=== PATIENT | female | born 1960 | race Caucasian/White ===

== ENCOUNTER 2017-04-14 05:55 | Emergency (ER) | payer MEDICARE, BC ==
[~2017-04-14] VITALS: Ht 165.1 cm; Wt 107.6 kg
[~2017-04-14 05:55] MED LIST: BIOT1TAB16 PO; CITA40TA14 PO; CRAN500C4 PO; CYAN1TAB46 PO; CYCL-375 PO; DIPH25CA84 PO; DULO30CA2 PO; ERGO400T3 PO; ESTR1.2532 PO; GABA-338 PO; HYDR-2164 PO; HYDR25TA85 PO; LISI10TA7 PO; LORA-204 PO; MAGN100T2 PO; MILN25TA PO; MULT1TAB69 PO; OXYC1TAB8 PO; PROM25TA PO; TURM500C7 PO
[2017-04-14 05:57] VITALS: TEMP 97.6; Ht 165.1 cm; Wt 107.6 kg
--- OUTSIDE RECORDS SUMMARY | 2017-04-14 05:59 | XMS REPORT | Continuity of Care Document ---
[facility] Address Unknown Phone Unavailable Care Team Providers Care Tool Maintenance Technician Name Role Phone Primary Care Physician Unavailable Source Comments Some departments are not documenting in the electronic medical record. If you do not see the information that you expected, contact Release of Information in the Health Information Management department at [phone] for further assistance in locating additional records.[facility] Active Allergies and Adverse Reactions Allergen Noted Date Severity Reactions Comments Clarithromycin 01/17/2007 Allergy recorded in SMS: Biaxin Codeine 01/17/2007 Allergy recorded in SMS: Codeine Morphine 01/17/2007 Allergy recorded in SMS: Morphine Current Medications Not on file Active Problems Not on file Social History Tobacco Use Types Packs/Day Years Used Date Never Assessed Plan of Care Health Maintenance Due Date Last Done Comments Hepatitis C Screening 1958 Physical (Comprehensive) 1965 Exam Pertussis Vaccine 1969 Tetanus Vaccine 1975 Cervical Cancer Screening 1979 Breast Cancer Screening 1998 Colorectal Cancer 2008 Screening Influenza Vaccine 07/29/2017 Results from Last 3 Months Not on file
--- OUTSIDE RECORDS SUMMARY | 2017-04-14 06:00 | XMS REPORT | Referral Summary ---
Author Author [facility] Organization [facility] Address Unknown Phone Unavailable Care Team Providers Care National Dedicated Truck Driver Name Role Phone Shanna John Primary Care Physician [phone] Encounter Date(s): 09/26/15 - 09/26/15 [facility] [place] [address] Discharge Diagnosis: Wheezing Discharge Diagnosis: GERD without esophagitis Discharge Diagnosis: Diabetes Discharge Diagnosis: Morbid obesity Discharge Diagnosis: History of gastric bypass Discharge Disposition: 01-Home or Self Care Attending Physician: Estelle Lobato APRN Admitting Physician: Estelle Lobato APRN Vital Signs Most recent to 1 oldest [Reference Range]: Temperature Tympanic 37.2 degC [36.6-38.1 degC] (09/26/15 9:47 AM) Peripheral Pulse 103 bpm Rate [60-100 bpm] *HI* (09/26/15 9:47 AM) Blood Pressure 128/76 mmHg [90-140/60-90 mmHg] (09/26/15 9:47 AM) SpO2 95 % (09/26/15 9:47 AM) Problem List Condition Effective Dates Status Health Status Informant Anxiety(Confirmed) Active Benign essential Active hypertension (disorder)(Confirmed ) HTN (hypertension), Active benign(Confirmed) Chronic Resolved fatigue(Confirmed) Chronic pain Active syndrome(Confirmed) Diabetes(Confirmed) Active Immune system Active disorder(Confirmed)1 Fibromyalgia(Confirm Active ed) Hypersomnia with Active sleep apnea(Confirmed) Hypoglycemia(Confirm Active ed) Chronic Active pruritus(Confirmed) Morbid Active patient obesity(Confirmed) Neuropathy(Confirmed Active ) MARLENI on Active CPAP(Confirmed) Pruritic disorders Active (disorder)(Confirmed ) 1see conversion document Allergies, Adverse Reactions, Alerts Substance Reaction Severity Status Biaxin Active codeine Nausea/Vomiting Active morphine Nausea/Vomiting Active oxyCODONE itch Active Medications Advair Diskus 250 mcg-50 mcg inhalation powder See Instructions, 2 samples given #5ZP!%@$ exp , 0 Refill(s) Start Date: 01/08/16 Status: Ordered ALPRAZolam 0.5 mg oral tablet 0.5 mg 1 tabs, Oral, BID, as needed for anxiety, Fax to [facility], # 60 tabs, 0 Refill(s) Start Date: 03/22/16 Status: Ordered Benadryl 25 mg, as needed for allergy symptoms, 0 Refill(s) Start Date: 06/16/15 Status: Ordered CeleXA 40 mg oral tablet 40 mg 1 tabs, Oral, Daily, # 90 tabs, 1 Refill(s), Pharmacy: [facility], 1 tabs Oral Daily Start Date: 02/19/16 Status: Ordered CPAP Machine (DME) DME Item Dr. Bonner - 10 cmH2O, See Instructions, # 1 Each, 0 Refill(s), Supply Start Date: 10/10/15 Status: Ordered cranberry 440 mg, Oral, Daily, 0 Refill(s) Start Date: 06/26/14 Status: Ordered cyclobenzaprine 10 mg oral tablet 10 mg 1 tabs, Oral, BID, # 180 tabs, 1 Refill(s), Pharmacy: [facility], 1 tabs Oral BID Start Date: 04/06/16 Status: Ordered Cymbalta 30 mg oral delayed release capsule 30 mg 1 caps, Oral, q8hr, do not crush or chew, # 90 caps, 0 Refill(s), other reason (Rx) Start Date: 12/10/15 Status: Ordered gabapentin 300 mg oral capsule 600 mg 2 caps, Oral, TID, # 180 caps, 6 Refill(s), other reason (Rx), 4 caps Oral TID,x30 days Start Date: 03/10/16 Stop Date: 10/06/16 Status: Ordered hydrochlorothiazide 25 mg oral tablet See Instructions, TAKE ONE TABLET BY MOUTH ONCE DAILY, # 90 tabs, 2 Refill(s), eRx: [facility], TAKE ONE TABLET BY MOUTH ONCE DAILY Start Date: 01/30/16 Status: Ordered hydrochlorothiazide 25 mg oral tablet See Instructions, TAKE ONE TABLET BY MOUTH ONCE DAILY, # 90 tabs, 0 Refill(s), Pharmacy: [place] [address], TAKE ONE TABLET BY MOUTH ONCE DAILY Start Date: 11/13/15 Status: Ordered hydrOXYzine hydrochloride 25 mg oral tablet See Instructions, TAKE ONE TABLET BY MOUTH EVERY 6 HOURS NEEDED. TAKES WITH NORCO., # 90 tabs, 3 Refill(s), Pharmacy: [place] [address], TAKE ONE TABLET BY MOUTH EVERY 6 HOURS NEEDED. TAKES WITH NORCO. Start Date: 11/25/15 Status: Ordered lisinopril 10 mg oral tablet 10 mg 1 tabs, Oral, Daily, # 90 tabs, 1 Refill(s), Pharmacy: [facility] [address], 1 tabs Oral Daily Start Date: 03/10/16 Status: Ordered magnesium citrate See Instructions, 1 cap BID, 0 Refill(s) Start Date: 06/16/15 Status: Ordered [place] 5 mg-325 mg oral tablet 1 tabs, Oral, TID, as needed for pain, MAY TAKE ONE EXTRA DAILY / MUST LAST 30 DAYS/, # 100 tabs, 0 Refill(s) Start Date: 03/22/16 Status: Ordered Premarin 1.25 mg oral tablet See Instructions, TAKE ONE TABLET BY MOUTH 3x WEEKLY, # 84 tabs, 0 Refill(s), TAKE ONE TABLET BY MOUTH 3x WEEKLY Start Date: 07/28/15 Status: Ordered PriLOSEC 40 mg oral delayed release capsule 40 mg 1 caps, Oral, Daily, # 90 caps, 0 Refill(s), Pharmacy: [facility] [address], 1 caps Oral Daily Start Date: 09/26/15 Status: Ordered ProAir RespiClick 90 mcg/inh inhalation powder 2 puffs, Inhalation, q4hr, Shortness of Breath/Wheezing, Pt. has coupon for free trial - given to pt while in office., # 1 Each, 1 Refill(s), Pharmacy: [facility] [id number] Start Date: 10/10/15 Status: Ordered promethazine 25 mg oral tablet See Instructions, TAKE ONE TABLET BY MOUTH EVERY 6 HOURS NEEDED FOR NAUSEA, # 90 tabs, 2 Refill(s), eRx: [facility] [id number], TAKE ONE TABLET BY MOUTH EVERY 6 HOURS NEEDED FOR NAUSEA Start Date: 12/29/15 Status: Ordered Savella 25 mg oral tablet 25 mg 1 tabs, Oral, BID, # 180 tabs, 3 Refill(s), 1 tabs Oral BID Start Date: 07/28/15 Status: Ordered TUMERIC TUMERIC, Daily, 0 Refill(s) Start Date: 06/16/15 Status: Ordered Vitamin D with Minerals oral tablet 2 tabs, Oral, Daily, # 30 tabs, 0 Refill(s) Start Date: 09/17/14 Status: Ordered Results No data available for this section Immunizations Vaccine Date Refusal Reason tetanus/diphth/pertuss (Tdap) adult/adol 09/19/15 influenza virus vaccine, inactivated 09/19/15 influenza virus vaccine, inactivated1 09/17/14 pneumococcal 23-polyvalent vaccine 09/19/15 pneumococcal 23-polyvalent vaccine 10/12/01 tetanus-diphth toxoids (Td) adult/adol 04/01/04 zoster vaccine live 10/01/13 1Result Comment: [09/24/2014] see scanned doc Procedures Procedure Date Related Diagnosis Body Site Adenoidectomy Appendectomy Cholecystectomy Dilation and curettage Gastric bypass Hysterectomy Laparoscopy NERVE RELEASE IN ABD1 Parotidectomy Sphincterotomy2 Tonsillectomy TUMOR REMOVED3 1see Conversion Documents 2see Conversion document 3See Conversion Document Social History Social History Type Response Smoking Status Former smoker; Type: Cigarettes; Tobacco use per day: 1 Pack ; Number of years: 32; Total pack years: 32; Stopped at age: 89 1Quit at age 48. Assessment and Plan Extracted from: Title: Office Visit Note-GERD Author: Estelle Lobato ADULT SCHOOL COUNSELOR Date: Assessment/Plan 1.GERD without esophagitis Discussed with patient considering her symptoms I think it's reasonable to treat her for acid refluxthough clearly her anatomy is different since having the bypass. May need to reestablish care with gastric bypass surgeonif continued acid symptoms despite PPI therapy. Ordered: Office Visit Level 4 Est 34017 2.Wheezing As patient's discusses her symptoms more question if it's related tolaryngeal irritation from reflux. Let's see if it improves with the PPI. May need to refer to ENT for further evaluation. Her now keep pulmonology appointment. Ordered: Office Visit Level 4 Est 14424 3.History of gastric bypass Ordered: Office Visit Level 4 Est 31309 Diabetes Last labs reviewed with patient. Encourage healthy eating. Morbid obesity Ordered: Office Visit Level 4 Est 70338 Orders: omeprazole, 40 mg 1 caps, Oral, Daily, # 90 caps, 0 Refill(s), Pharmacy: [facility], 1 caps Oral Daily
--- OUTSIDE RECORDS SUMMARY | 2017-04-14 06:00 | XMS REPORT | Referral Summary ---
Author Author [facility], [facility] Organization [facility] Address Unknown Phone Unavailable Care Team Providers Care Party Demonstrator Name Role Phone Shanna John Primary Care Physician [phone] Encounter Date(s): 05/05/16 - 05/05/16 [facility] [place] [address] Discharge Diagnosis: Abdominal pain, epigastric Discharge Diagnosis: Chronic pain syndrome Discharge Disposition: 01-Home or Self Care Attending Physician: Marie John DO Admitting Physician: Marie John DO Vital Signs Most recent to 1 oldest [Reference Range]: Peripheral Pulse 92 bpm Rate [60-100 bpm] (05/05/16 1:29 PM) Respiratory Rate 18 br/min [14-20 br/min] (05/05/16 1:29 PM) Blood Pressure 124/82 mmHg [90-140/60-90 mmHg] (05/05/16 1:29 PM) SpO2 96 % (05/05/16 1:29 PM) Problem List Condition Effective Dates Status Health [...] BID, as needed for anxiety, Fax to [facility], # 60 tabs, 0 Refill(s) Start Date: 04/19/16 Status: Ordered Benadryl 25 mg, as needed for allergy symptoms, 0 Refill(s) Start Date: 06/16/15 Status: Ordered CeleXA 40 mg oral tablet 40 mg 1 tabs, Oral, Daily, # 90 tabs, 1 Refill(s), Pharmacy: [facility], 1 tabs Oral Daily [...] BID, # 180 tabs, 1 Refill(s), Pharmacy: [facility], 1 tabs Oral BID [...] DAILY, # 90 tabs, 2 Refill(s), eRx: [facility], TAKE ONE TABLET BY MOUTH ONCE DAILY Start Date: 01/30/16 Status: Ordered hydrochlorothiazide 25 mg oral tablet See Instructions, TAKE ONE TABLET BY MOUTH ONCE DAILY, # 90 tabs, 0 Refill(s), Pharmacy: [facility], TAKE ONE TABLET BY MOUTH ONCE DAILY Start Date: 11/13/15 Status: Ordered hydrOXYzine hydrochloride 25 mg oral tablet See Instructions, TAKE ONE TABLET BY MOUTH EVERY 6 HOURS NEEDED. TAKES WITH NORCO., # 90 tabs, 3 Refill(s), Pharmacy: [place] [address], TAKE ONE TABLET BY MOUTH EVERY 6 HOURS NEEDED. TAKES WITH NORCO. Start Date: 11/25/15 Status: Ordered lisinopril 10 mg oral tablet 10 mg 1 tabs, Oral, Daily, # 90 tabs, 1 Refill(s), Pharmacy: [place] [address], 1 tabs Oral Daily Start Date: 03/10/16 Status: Ordered magnesium citrate See Instructions, 1 cap BID, 0 Refill(s) Start Date: 06/16/15 Status: Ordered [place] 5 mg-325 mg oral tablet 1 tabs, Oral, TID, as needed for pain, MAY TAKE ONE EXTRA DAILY / MUST LAST 30 DAYS/, # 100 tabs, 0 Refill(s) Start Date: 05/05/16 Status: Ordered Percocet 5/325 oral tablet 1-2 tabs, Oral, q6hr, 0 Refill(s) Start Date: 05/05/16 Status: Ordered Premarin 1.25 mg oral tablet See Instructions, TAKE ONE TABLET BY MOUTH 3x WEEKLY, # 84 tabs, 0 Refill(s), TAKE ONE TABLET BY MOUTH 3x WEEKLY Start Date: 07/28/15 Status: Ordered PriLOSEC 40 mg oral delayed release capsule 40 mg 1 caps, Oral, Daily, # 90 caps, 0 Refill(s), Pharmacy: [place] [address], 1 caps Oral Daily Start Date: 09/26/15 Status: Ordered ProAir RespiClick 90 mcg/inh inhalation powder 2 puffs, Inhalation, q4hr, Shortness of Breath/Wheezing, Pt. has coupon for free trial - given to pt while in office., # 1 Each, 1 Refill(s), Pharmacy: [facility] [place] [id number] Start Date: 10/10/15 Status: Ordered promethazine 25 mg oral tablet See Instructions, TAKE ONE TABLET BY MOUTH EVERY 6 HOURS NEEDED FOR NAUSEA, # 90 tabs, 2 Refill(s), eRx: [place] [address], TAKE ONE TABLET BY MOUTH EVERY 6 [...] and Plan Extracted from: Title: Office Visit Note Author: Marie John DO Date: 05/05/16 Assessment/Plan Abdominal pain, epigastric We will refer patient Mandeep at her request. Ordered: Internal Referral to Gastroenterology Office Visit Level 4 Est 13211 Chronic pain syndrome A thorough discussion was had today about the trajectory of her pain control. We discussed thatthere really isn't anything stronger than hydromorphone out there and that I am concerned if she starts taking this medication as such young age that we have no where to go from here. She agrees with this and wants to try her normal 100 of hydrocodone for this monthand see how she does. She will return to clinic in a month for reevaluation. Ordered: Office Visit Level 4 Est 82520 Orders: HYDROcodone-acetaminophen, 1 tabs, Oral, TID, as needed for pain, MAY TAKE ONE EXTRA DAILY / MUST LAST 30 DAYS/, # 100 tabs, 0 Refill(s)
--- OUTSIDE RECORDS SUMMARY | 2017-04-14 06:00 | XMS REPORT | Referral Summary ---
Author Author [facility] Organization [facility] Address Unknown Phone Unavailable Care Team Providers Care Head Host/Hostess Name Role Phone Shanna John Primary Care Physician [phone] Encounter VC Date(s): 12/01/16 - 12/01/16 [facility] [address] [place] [address] Discharge Disposition: 01-Home or Self Care Attending Physician: Ace Layton MD Admitting Physician: Ace Layton MD Vital Signs Most recent to 1 oldest [Reference Range]: Temperature Skin 36.0 degC [36-37 degC] (12/01/16 8:26 AM) Temperature Temporal 36.4 degC Artery [36.3-37.8 (12/01/16 10:50 AM) degC] Peripheral Pulse 81 bpm Rate [60-100 bpm] (12/01/16 2:15 PM) Heart Rate Monitored 72 bpm [60-100 bpm] (12/01/16 10:25 AM) Respiratory Rate 16 br/min [14-20 br/min] (12/01/16 2:15 PM) Blood Pressure 149/67 mmHg [90-140/60-90 mmHg] *HI* (12/01/16 2:15 PM) SpO2 94 % (12/01/16 2:15 PM) Problem List Condition Effective Dates Status Health Status Informant Anxiety(Confirmed) Active Benign essential Active hypertension (disorder)(Confirmed ) HTN (hypertension), Active benign(Confirmed) Chronic back pain Active greater than 3 months duration(Confirmed) Chronic Resolved fatigue(Confirmed) Chronic pain Active syndrome(Confirmed) [...] morphine Nausea/Vomiting Active oxyCODONE itch Active Medications CeleXA 40 mg oral tablet 40 mg 1 tabs, Oral, Daily, # 90 tabs, 1 Refill(s), Pharmacy: [facility], 1 tabs Oral Daily Start Date: 02/19/16 Status: Ordered cinnamon See Instructions, 1 tab BID, 0 Refill(s) Start Date: 05/25/16 Status: Ordered cranberry 440 mg, Oral, Daily, 0 Refill(s) Start Date: 06/26/14 Status: Ordered gabapentin 300 mg oral capsule 600 mg 2 caps, Oral, TID, # 180 caps, 0 Refill(s) Start Date: 11/25/16 Status: Ordered hydrochlorothiazide 25 mg oral tablet See Instructions, TAKE ONE TABLET BY MOUTH ONCE DAILY, # 90 tabs, 1 Refill(s), eRx: [facility], TAKE ONE TABLET BY MOUTH ONCE DAILY Start Date: 08/16/16 Status: Ordered hydrOXYzine hydrochloride 25 mg oral tablet See Instructions, TAKE ONE TABLET BY MOUTH EVERY 6 HOURS NEEDED TAKE WITH NORCO., # 90 tabs, 0 Refill(s) Start Date: 11/23/16 Status: Ordered multivitamin 1 tabs, Oral, Daily, 0 Refill(s) Start Date: 12/01/16 Status: Ordered [place] 5 mg-325 mg oral tablet 2 tabs, Oral, TID, as needed for pain, MUST LAST 30 DAYS, # 120 tabs, 0 Refill(s) Start Date: 07/26/16 Status: Ordered promethazine 25 mg oral tablet See Instructions, TAKE ONE TABLET BY MOUTH EVERY 6 HOURS NEEDED FOR NAUSEA, # 90 tabs, 1 Refill(s), Pharmacy: [facility], TAKE ONE TABLET BY MOUTH EVERY 6 HOURS NEEDED FOR NAUSEA Start Date: 10/19/16 Status: Ordered Super B Complex 2 tabs, Oral, Daily, 0 Refill(s) Start Date: 12/01/16 Status: Ordered tiZANidine 4 mg oral tablet 4 mg 1 tabs, Oral, q8hr, Once every 8 hrs., # 90 tabs, 0 Refill(s) Start Date: 10/19/16 Status: Ordered Vitamin D3 1,000 Intl_Units, Oral, Daily, 0 Refill(s) Start Date: 12/01/16 Status: Ordered Results Hematology Most recent to 1 oldest [Reference Range]: WBC [4.8-10.8 8.2 10*3/uL 10*3/uL] (12/01/16 8:09 AM) RBC [4.00-5.20] 4.34 (12/01/16 8:09 AM) Hgb [12.0-16.0 11.7 gm/dL gm/dL] *LOW* (12/01/16 8:09 AM) Hct [37.0-47.0 %] 37.2 % (12/01/16 8:09 AM) MCV [82.0-99.0 fL] 85.7 fL (12/01/16 8:09 AM) MCH [27.0-32.0 pg] 27.0 pg (12/01/16 8:09 AM) MCHC [32.0-36.0 31.5 gm/dL gm/dL] *LOW* (12/01/16 8:09 AM) RDW [11.5-14.5 %] 14.8 % *HI* (12/01/16 8:09 AM) Platelet [150-400 380 10*3/uL 10*3/uL] (12/01/16 8:09 AM) MPV [9.4-12.4 fL] 10.2 fL (12/01/16 8:09 AM) Immature 0.2 % Granulocytes (12/01/16 8:09 AM) [0.0-1.0 %] Neutrophils [51-75 50 % %] *LOW* (12/01/16 8:09 AM) Lymphocytes [20-46 37 % %] (12/01/16 8:09 AM) Monocytes [4-11 %] 7 % (12/01/16 8:09 AM) Eosinophils [0-4 %] 5 % *HI* (12/01/16 8:09 AM) Basophils [0-2 %] 0 % (12/01/16 8:09 AM) Neutro Absolute 4.15 [1.90-7.00] (12/01/16 8:09 AM) Lymph Absolute 3.07 [0.80-3.30] (12/01/16 8:09 AM) Nicholas Absolute 0.58 [0.30-1.00] (12/01/16 8:09 AM) Eos Absolute 0.39 [0.00-0.50] (12/01/16 8:09 AM) Baso Absolute 0.03 [0.00-0.20] (12/01/16 8:09 AM) Nucleated RBC 0.0 /100 WBC Automated [0 /100 (12/01/16 8:09 AM) WBC] Coagulation Most recent to 1 oldest [Reference Range]: INR [0.9-1.2] 1.0 (12/01/16 8:09 AM) PTT [25.0-35.0 39.2 seconds seconds] *HI* (12/01/16 8:09 AM) Chemistry Most recent to 1 oldest [Reference Range]: Blood Glucose, 111 mg/dL Capillary [70-100 *HI* mg/dL] (12/01/16 8:08 AM) Immunizations Given and Recorded Vaccine Date Status Refusal Reason tetanus/diphth/pertuss (Tdap) adult/adol 09/19/15 Given influenza virus vaccine, inactivated 10/19/16 Given influenza virus vaccine, inactivated 09/19/15 Given influenza virus vaccine, inactivated1 09/17/14 Recorded pneumococcal 23-polyvalent vaccine 09/19/15 Given pneumococcal 23-polyvalent vaccine 10/12/01 Recorded tetanus-diphth toxoids (Td) adult/adol 04/01/04 Given zoster vaccine live 10/01/13 Given 1Result Comment: [09/24/2014] see scanned doc Procedures Procedure Date Related Diagnosis Body Site Spinal puncture, lumbar, diagnostic.. 12/01/16 Spinal puncture, therapeutic, for drainage of 12/01/16 cerebrospinal fluid (by needle or catheter).. Adenoidectomy Appendectomy Cholecystectomy Dilation and curettage Gastric [...] 1Quit at age 48. Assessment and Plan No data available for this section
--- OUTSIDE RECORDS SUMMARY | 2017-04-14 06:00 | XMS REPORT | Referral Summary ---
Author Author [facility] Organization [facility] Address Unknown Phone Unavailable Care Team Providers Care Seo Executive Name Role Phone Shanna John Primary Care Physician [phone] Encounter VC Date(s): 06/22/16 - 06/22/[address] [facility] [address] [facility] [address] [place], [place] [address] Discharge Diagnosis: Paresthesias Discharge Disposition: 01-Home or Self Care Attending Physician: Ace Layton MD Admitting Physician: Ace Layton MD Vital Signs Most recent to 1 oldest [Reference Range]: Peripheral Pulse 80 bpm Rate [60-100 bpm] (06/22/16 9:27 AM) Blood Pressure 140/90 mmHg [90-140/60-90 mmHg] (06/22/16 9:27 AM) Problem List Condition Effective Dates Status [...] morphine Nausea/Vomiting Active oxyCODONE itch Active Medications ALPRAZolam 0.5 mg oral tablet 0.5 mg 1 tabs, Oral, BID, as needed for anxiety, Fax to [facility], # 60 tabs, 0 Refill(s) Start Date: 06/19/16 Status: Ordered Benadryl 25 mg, as needed for allergy symptoms, 0 Refill(s) Start Date: 06/16/15 Status: Ordered CeleXA 40 mg oral tablet 40 mg 1 tabs, Oral, Daily, # 90 tabs, 1 Refill(s), Pharmacy: [facility], 1 tabs Oral Daily Start Date: 02/19/16 Status: Ordered cinnamon See Instructions, 1 tab BID, 0 Refill(s) Start Date: 05/25/16 Status: Ordered CPAP Machine (DME) DME Item Dr. Bonner - 10 cmH2O, See Instructions, # 1 Each, 0 Refill(s), Supply Start Date: 10/10/15 Status: Ordered cranberry 440 mg, Oral, Daily, 0 Refill(s) Start Date: 06/26/14 Status: Ordered cyclobenzaprine 10 mg oral tablet 10 mg 1 tabs, Oral, BID, # 180 tabs, 1 Refill(s), Pharmacy: [facility], 1 tabs Oral BID Start Date: 04/06/16 [...] DAILY, # 90 tabs, 2 Refill(s), eRx: [facility], TAKE ONE TABLET BY MOUTH ONCE DAILY Start Date: 01/30/16 Status: Ordered hydrOXYzine hydrochloride 25 mg oral tablet See Instructions, TAKE ONE TABLET BY MOUTH EVERY 6 HOURS NEEDED TAKE WITH NORCO., # 90 tabs, eRx: [facility], TAKE ONE TABLET BY MOUTH EVERY 6 HOURS NEEDED TAKE WITH NORCO. Start Date: 06/19/16 Status: Ordered lisinopril 10 mg oral tablet See Instructions, TAKE ONE TABLET BY MOUTH ONCE DAILY, # 90 tabs, eRx: [facility], TAKE ONE TABLET BY MOUTH ONCE DAILY Start Date: 06/19/16 Status: Ordered magnesium citrate See Instructions, 1 cap BID, 0 Refill(s) Start Date: 06/16/15 Status: Ordered metoclopramide 10 mg oral tablet 10 mg 1 tabs, Oral, TIDAC, X 30 days, # 90 tabs, 0 Refill(s), Pharmacy: [facility], 1 tabs Oral TIDAC,x30 days Start Date: 06/05/16 Stop Date: 07/05/16 Status: Ordered [place] 5 mg-325 mg oral tablet 2 tabs, Oral, TID, as needed for pain, / MUST LAST 30 DAYS/, # 150 tabs, 0 Refill(s) Start Date: 05/26/16 Status: Ordered ProAir RespiClick 90 mcg/inh inhalation powder 2 puffs, Inhalation, q4hr, Shortness of Breath/Wheezing, Pt. has coupon for free trial - given to pt while in office., # 1 Each, 1 Refill(s), Pharmacy: [facility] Start Date: 10/10/15 Status: Ordered Savella 25 mg oral tablet 25 mg 1 tabs, Oral, BID, # 180 tabs, 3 Refill(s), 1 tabs Oral BID Start Date: 07/28/15 Status: Ordered Spiriva mcg, Inhalation, Daily, 0 Refill(s) Start Date: 05/26/16 Status: Ordered TUMERIC TUMERIC, Daily, 0 Refill(s) [...] Extracted from: Title: Office Visit Note Author: Ace Layton MD Date: 06/22/16 Assessment/Plan Paresthesias 56 yo F with diabetes her for evaluation of paresthesias and burning pains in feet/hands for about a year. Pt has been evaluated previously by Neurologist, had NCS/EMG and lab work. Will request records and EMG report. Examination was remarkable for ?effort dependent weakness ofR leg and reduced sensation in feet/hands. Reflexes were normal. Plan MRI lumbar spine w/tanya asses for lumbar radiculopathy Request Neurology records including EMG report. Neuropathy labs ordered Time spent with the patient was45 minutes. Greater than 50% of that time was spent counseling the patient, discussing treatment plan and options, answering questions, and follow up plan. Ordered: HIV Antigen/Antibody Immunoelectrophoresis, Serum Immunoglobulin Free Light Chains-[place] Methylmalonic Acid Quant-[place] Sjogren's Antibody Thiamin (Vit B1) Whole Blood-[place] TSH with Reflex Free T4 Vitamin B12 and Folate Vitamin E Level-[place] Addendum Received adn reviewed notes from prior Neurologist. by Ritika NCS/EMG from 03/2015 had reduced R sural amplitude with normal latency, and absent R Omi, peroneal sensory response. 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 Will repeat NCS/EMG Ace Edmond MD on June 22, 2016 10:49:23 CDT
--- OUTSIDE RECORDS SUMMARY | 2017-04-14 06:00 | XMS REPORT | Referral Summary ---
Author Author [facility] Organization [facility] Address Unknown Phone Unavailable Care Team Providers Care Emergency Room Physician Name Role Phone Shanna John Primary Care Physician [phone] Encounter VC Date(s): 11/17/16 - 11/17/[address] [facility] [address] [facility] [address] [place], [place] [address] Discharge Diagnosis: Paresthesias Discharge Diagnosis: White matter abnormality on MRI of brain Discharge Diagnosis: Jerking movements of extremities Discharge Disposition: 01-Home or Self Care Attending Physician: Ace Layton MD Admitting Physician: Ace Layton MD Referring Physician: Ace Layton MD Vital Signs Most recent to 1 oldest [Reference Range]: Peripheral Pulse 76 bpm Rate [60-100 bpm] (11/17/16 9:53 AM) Blood Pressure 132/82 mmHg [90-140/60-90 mmHg] (11/17/16 9:53 AM) Problem List Condition Effective Dates Status [...] BID, as needed for anxiety[facility], 0 Refill(s) Start Date: 10/19/16 Status: Ordered Benadryl 25 mg, as needed for allergy symptoms, 0 Refill(s) Start Date: 06/16/15 Status: Ordered CeleXA 40 mg oral tablet 40 mg 1 tabs, Oral, Daily, # 90 tabs, 1 Refill(s), Pharmacy: [place] [id number], 1 tabs Oral Daily Start Date: 02/19/16 Status: Ordered cinnamon See Instructions, 1 tab BID, 0 Refill(s) Start Date: 05/25/16 Status: Ordered CPAP Machine (DME) DME Item Dr. Bonner - 10 cmH2O, See Instructions, # 1 Each, 0 Refill(s), Supply Start Date: 10/10/15 Status: Ordered cranberry 440 mg, Oral, Daily, 0 Refill(s) Start Date: 06/26/14 Status: Ordered cyclobenzaprine 10 mg oral tablet See Instructions, TAKE ONE TABLET BY MOUTH TWICE DAILY, # 180 tabs, eRx: [place] [id number], TAKE ONE TABLET BY MOUTH TWICE DAILY Start Date: 07/19/16 Status: Ordered Cymbalta 30 mg oral delayed release capsule 30 mg 1 caps, Oral, q8hr, do not crush or chew, # 28 caps, 10 Refill(s), Pharmacy: [place] [id number], 1 caps Oral q8hr,Instr:do not crush or chew Start Date: 11/12/16 Status: Ordered gabapentin 300 mg oral capsule 600 mg 2 caps, Oral, TID, # 200 caps, 3 Refill(s), 4 caps Oral TID,x30 days Start Date: 10/19/16 Stop Date: 02/16/17 Status: Ordered hydrochlorothiazide 25 mg oral tablet See Instructions, TAKE ONE TABLET BY MOUTH ONCE DAILY, # 90 tabs, 1 Refill(s), eRx: [facility], TAKE ONE TABLET BY MOUTH ONCE DAILY Start Date: 08/16/16 Status: Ordered hydrOXYzine hydrochloride 25 mg oral tablet See Instructions, TAKE ONE TABLET BY MOUTH EVERY 6 HOURS NEEDED TAKE WITH NORCO., # 90 tabs, eRx: [facility], TAKE ONE TABLET BY MOUTH EVERY 6 HOURS NEEDED TAKE WITH NORCO. Start Date: 10/29/16 Status: Ordered lisinopril 10 mg oral tablet See Instructions, TAKE ONE TABLET BY MOUTH ONCE DAILY, # 90 tabs, 3 Refill(s), Pharmacy: [place] [id number], TAKE ONE TABLET BY MOUTH ONCE DAILY Start Date: 10/19/16 Status: Ordered magnesium citrate See Instructions, 1 cap BID, 0 Refill(s) Start Date: 06/16/15 Status: Ordered metoclopramide 10 mg oral tablet See Instructions, TAKE ONE TABLET BY MOUTH THREE TIMES DAILY BEFORE MEAL(S), # 90 tabs, eRx: [facility], TAKE ONE TABLET BY MOUTH THREE TIMES DAILY BEFORE MEAL(S) Start Date: 09/03/16 Status: Ordered [place] 5 mg-325 mg oral tablet 2 tabs, Oral, TID, as needed for pain, MUST LAST 30 DAYS, # 120 tabs, 0 Refill(s) Start Date: 07/26/16 Status: Ordered Phenergan 0 Refill(s) Start Date: 10/19/16 Status: Ordered ProAir RespiClick 90 mcg/inh inhalation powder 2 puffs, Inhalation, q4hr, Shortness of Breath/Wheezing, Pt. has coupon for free trial - given to pt while in office., # 1 Each, 1 Refill(s), Pharmacy: [place] [id number] Start Date: 10/10/15 Status: Ordered promethazine 25 mg oral tablet See Instructions, TAKE ONE TABLET BY MOUTH EVERY 6 HOURS NEEDED FOR NAUSEA, # 90 tabs, 1 Refill(s), Pharmacy: [place] [id number], TAKE ONE TABLET BY MOUTH EVERY 6 HOURS NEEDED FOR NAUSEA Start Date: 10/19/16 Status: Ordered Savella 25 mg oral tablet 25 mg 1 tabs, Oral, BID, # 12 boxes, 6 Refill(s), 1 tabs Oral BID Start Date: 10/19/16 Status: Ordered Spiriva mcg, Inhalation, Daily, 0 Refill(s) Start Date: 05/26/16 Status: Ordered tiZANidine 4 mg oral tablet 4 mg 1 tabs, Oral, q8hr, Once every 8 hrs., # 90 tabs, 0 Refill(s) Start Date: 10/19/16 Status: Ordered TUMERIC TUMERIC, Daily, 0 Refill(s) Start Date: 06/16/15 Status: Ordered Vitamin D with Minerals oral tablet 2 tabs, Oral, Daily, # 30 tabs, 0 Refill(s) Start Date: 09/17/14 Status: Ordered Results No data available for this section Immunizations Given and Recorded Vaccine Date Status [...] 50. Assessment and Plan Extracted from: Title: Ambulatory Patient Education Author: Ace Layton MD Date: 11/17/16 Procedures Lumbar Puncture A lumbar puncture, or spinal tap, is a procedure in which a small amount of the fluid that surrounds the brain and spinal cord is removed and examined. The fluid is called the cerebrospinal fluid. This procedure may be done to: Help diagnose various problems, such as meningitis, encephalitis, multiple sclerosis, and AIDS. Remove fluid and relieve pressure that occurs with certain types of headaches. Look for bleeding within the brain and spinal cord areas (central nervous system). Place medicine into the spinal fluid. LET YOUR HEALTH CARE PROVIDER KNOW ABOUT: Any allergies you have. All medicines you are taking, including vitamins, herbs, eye drops, creams, and [id number] medicines. Previous problems you or members of your family have had with the use of anesthetics. Any blood disorders you have. Previous surgeries you have had. Medical conditions you have. RISKS AND COMPLICATIONS Generally, this is a safe procedure. However, as with any procedure, complications can occur. Possible complications include: Spinal headache. This is a severe headache that occurs when there is a leak of spinal fluid. A spinal headache causes discomfort but is not dangerous. If it persists, another procedure may be done to treat the headache. Bleeding. This most often occurs in people with bleeding disorders. These are disorders in which the blood does not clot normally. Infection at the insertion site that can spread to the bone or spinal fluid. Formation of a spinal cord tumor (rare). Brain herniation or movement of the brain into the spinal cord (rare). Inability to move (extremely rare). BEFORE THE PROCEDURE You may have blood tests done. These tests can help tell how well your kidneys and liver are working. They can also show how well your blood clots. If you take blood thinners (anticoagulant medicine), ask your health care provider if and when you should stop taking them. Your health care provider may order a CT scan of your brain. Make arrangements for someone to drive you home after the procedure. PROCEDURE You will be positioned so that the spaces between the bones of the spine (vertebrae) are as wide as possible. This will make it easier to pass the needle into the spinal canal. Depending on your age and size, you may lie on your side, curled up with your knees under your chin. Or, you may sit with your head resting on a pillow that is placed at waist level. The skin covering the lower back (or lumbar region) will be cleaned. The skin may be numbed with medicine. You may be given pain medicine or a medicine to help you relax (sedative) . A small needle will be inserted in the skin until it enters the space that contains the spinal fluid. The needle will not enter the spinal cord. The spinal fluid will be collected into tubes. The needle will be withdrawn, and a bandage will be placed on the site. AFTER THE PROCEDURE You will remain lying down for 1 hour or for as long as your health care provider suggests. The spinal fluid will be sent to a laboratory to be examined. The results of the examination may be available before you go home. A test, called a culture, may be taken of the spinal fluid if your health care provider thinks you have an infection. If cultures were taken for exam, the results will usually be available in a couple of days. This information is not intended to replace advice given to you by your health care provider. Make sure you discuss any questions you have with your health care provider. Document Released: 11/11/2001 Document Revised: 09/04/2014 Document Reviewed: [employer] Interactive Patient Education 2016 [employer] No follow up information was provided. Extracted from: Title: Office Visit Note Author: Ace Layton MD Date: 11/17/16 Assessment/Plan 1.Paresthesias 2.White matter abnormality on MRI of brain Explained to the patientthe findings and next step in management. Will proceed with LP to check for olig bands. If negative will plan on repeating MRI brain in 6 months Discussed about LP potential adverse effects including but not limited to headaches, infection, bleeding, herniation. 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 3.Jerking movements of extremities EEG showed no seizures.Unclear etiology, it is possible that spells are psychogenic. Recommended clinical monitoring for now. Time spent with the patient was 15 minutes. Greater than 50% of that time was spent counseling the patient, discussing treatment plan and options, answering questions, and follow up plan.
--- OUTSIDE RECORDS SUMMARY | 2017-04-14 06:00 | XMS REPORT | Referral Summary ---
Author Author [facility] Organization [facility] Address Unknown Phone Unavailable Care Team Providers Care Casting Carrier Name Role Phone Shanna John Primary Care Physician [phone] Encounter VC Date(s): 01/20/17 - 01/20/17 [facility], [address] [place] [address] Discharge Diagnosis: Chronic pruritus Discharge Diagnosis: Fibromyalgia Discharge Diagnosis: Anxiety Discharge Diagnosis: Benign essential hypertension (disorder) Discharge Disposition: 01-Home or Self Care Attending Physician: Marie John DO Admitting Physician: Marie John DO Vital Signs Most recent to 1 oldest [Reference Range]: Temperature Tympanic 36.2 degC [36.6-38.1 degC] *LOW* (01/20/17 8:57 AM) Peripheral Pulse 94 bpm Rate [60-100 bpm] (01/20/17 8:57 AM) Respiratory Rate 18 br/min [14-20 br/min] (01/20/17 8:57 AM) Blood Pressure 114/74 mmHg [90-140/60-90 mmHg] (01/20/17 8:57 AM) SpO2 96 % (01/20/17 8:57 AM) Problem List Condition Effective Dates Status [...] BID, as needed for anxiety, Fax to [place], # 60 tabs, 0 Refill(s) Start Date: 01/14/17 Status: Ordered CeleXA 40 mg oral tablet 40 mg 1 tabs, Oral, Daily, # 90 tabs, 1 Refill(s), Pharmacy: [facility], 1 tabs Oral Daily Start Date: 02/19/16 Status: Ordered cinnamon See Instructions, 1 tab BID, 0 Refill(s) Start Date: 05/25/16 Status: Ordered cranberry 440 mg, Oral, Daily, 0 Refill(s) Start Date: 06/26/14 Status: Ordered Cymbalta 30 mg oral delayed release capsule 30 mg 1 caps, Oral, q6hr (scheduled), do not crush or chew, # 120 caps, 3 Refill (s), Pharmacy: [place] [id number], 1 caps Oral q6hr (scheduled),Instr:do not crush or chew Start Date: 01/20/17 Status: Ordered gabapentin 300 mg oral capsule 600 mg 2 caps, Oral, TID, # 180 caps, 0 Refill(s) Start Date: 11/25/16 Status: Ordered hydrochlorothiazide 25 mg oral tablet See Instructions, TAKE ONE TABLET BY MOUTH ONCE DAILY, # 90 tabs, 1 Refill(s), eRx: [facility], TAKE ONE TABLET BY MOUTH ONCE DAILY Start Date: 08/16/16 Status: Ordered hydrOXYzine hydrochloride 25 mg oral tablet See Instructions, TAKE ONE TABLET BY MOUTH EVERY 6 HOURS NEEDED TAKE WITH NORCO., # 90 tabs, eRx: [facility], TAKE ONE TABLET BY MOUTH EVERY 6 HOURS NEEDED TAKE WITH NORCO. Start Date: 01/10/17 Status: Ordered metoclopramide 10 mg oral tablet See Instructions, TAKE ONE TABLET BY MOUTH THREE TIMES DAILY BEFORE MEAL(S), # 90 tabs, 2 Refill(s), eRx: [facility] Start Date: 01/10/17 Status: Ordered multivitamin 1 tabs, Oral, Daily, 0 Refill(s) Start Date: 12/01/16 Status: Ordered [place] 5 mg-325 mg oral tablet 2 tabs, Oral, TID, as needed for pain, MUST LAST 30 DAYS, # 120 tabs, 0 Refill(s) Start Date: 07/26/16 Status: Ordered promethazine 25 mg oral tablet See Instructions, TAKE ONE TABLET BY MOUTH EVERY 6 HOURS NEEDED FOR NAUSEA, # 90 tabs, eRx: [facility] Start Date: 01/17/17 Status: Ordered Super B Complex 2 tabs, Oral, Daily, 0 Refill(s) Start Date: 12/01/16 Status: Ordered tiZANidine 4 mg oral tablet 4 mg 1 tabs, Oral, q8hr, Once every 8 hrs., # 90 tabs, 0 Refill(s) Start Date: 10/19/16 Status: Ordered Vitamin D3 1,000 Intl_Units, Oral, Daily, 0 Refill(s) Start Date: 12/01/16 Status: Ordered Results No data available for [...] Extracted from: Title: Ambulatory Patient Education Author: Marie John DO Date: Allergy Pruritus Pruritus is an itching feeling. There are many different conditions and factors that can make your skin itchy. Dry skin is one of the most common causes of itching. Most cases of itching do not require medical attention. Itchy skin can turn into a rash. HOME CARE INSTRUCTIONS Watch your pruritus for any changes. Take these steps to help with your condition: Skin Care Moisturize your skin as needed. A moisturizer that contains petroleum jelly is best for keeping moisture in your skin. Take or apply medicines only as directed by your health care provider. This may include: Corticosteroid cream. Anti-itch lotions. Oral anti-histamines. Apply cool compresses to the affected areas. Try taking a bath with: Epsom salts. Follow the instructions on the packaging. You can get these at your local pharmacy or grocery store. Baking soda. Pour a small amount into the bath as directed by your health care provider. Colloidal oatmeal. Follow the instructions on the packaging. You can get this at your local pharmacy or grocery store. Try applying baking soda paste to your skin. Stir water into baking soda until it reaches a paste-like consistency. Do not scratch your skin. Avoid hot showers or baths, which can make itching worse. A cold shower may help with itching as long as you use a moisturizer after. Avoid scented soaps, detergents, and perfumes. Use gentle soaps, detergents, perfumes, and other cosmetic products. General Instructions Avoid wearing tight clothes. Keep a journal to help track what causes your itch. Write down: What you eat. What cosmetic products you use. What you drink. What you wear. This includes jewelry. Use a humidifier. This keeps the air moist, which helps to prevent dry skin. SEEK MEDICAL CARE IF: The itching does not go away after several days. You sweat at night. You have weight loss. You are unusually thirsty. You urinate more than normal. You are more tired than normal. You have abdominal pain. Your skin tingles. You feel weak. Your skin or the whites of your eyes look yellow (jaundice). Your skin feels numb. This information is not intended to replace advice given to you by your health care provider. Make sure you discuss any questions you have with your health care provider. Document Released: 07/26/2012 Document Revised: 03/30/2016 Document Reviewed: [employer] Interactive Patient Education 2016 [employer] No follow up information was provided. Extracted from: Title: Office Visit Note Author: Marie John DO Date: 01/20/17 Assessment/Plan Anxiety Continue current regimen, return to clinic in 3 months. Ordered: Office Visit Level 4 Est 00152 Benign essential hypertension (disorder) Blood pressure looks good today, no changes. Ordered: Office Visit Level 4 Est 87336 Chronic pruritus Continue Atarax as needed. Ordered: Office Visit Level 4 Est 44012 Fibromyalgia Hopefully the stress will lessen now that her fatheris going to move into her house, we'll continue to monitor, return to clinic in 3 months. Continue with pain management. Ordered: Office Visit Level 4 Est 03228
--- OUTSIDE RECORDS SUMMARY | 2017-04-14 06:00 | XMS REPORT | Referral Summary ---
Author Organization Unknown Address Unknown Phone Unavailable Care Team Providers Care Supervisor Rubber Covering Name Role Phone Delvin Lubin Primary Care Physician [phone] Encounter VC Date(s): 02/12/15 - 02/12/15 [facility] [address] [place] [id number] Discharge Diagnosis: Peripheral neuropathy Discharge Disposition: Home or Self Care Attending Physician: Joel Lubin MD Admitting Physician: Joel Lubin MD Vital Signs Most recent to 1 oldest [Reference Range]: Temperature Tympanic 35.8 degC [36.6-38.1 degC] *LOW* (02/12/15 2:21 PM) Peripheral Pulse 86 bpm Rate [60-100 bpm] (02/12/15 2:21 PM) Respiratory Rate 14 br/min [14-20 br/min] (02/12/15 2:21 PM) Blood Pressure 128/82 mmHg [90-140/60-90 mmHg] (02/12/15 2:21 PM) Most recent to 1 oldest [Reference Range]: SpO2 94 % (02/12/15 2:21 PM) Problem List Condition Effective Dates Status Health Status Informant Benign essential Active hypertension (disorder)(Confirmed ) HTN (hypertension), Active benign(Confirmed) Chronic Resolved fatigue(Confirmed) Diabetes(Confirmed) Active Immune system Active disorder(Confirmed)1 Fibromyalgia(Confirm Active ed) Hypersomnia with Active sleep apnea(Confirmed) Hypoglycemia(Confirm Active ed) Chronic Active pruritus(Confirmed) MARLENI on Active CPAP(Confirmed) Pruritic disorders Active (disorder)(Confirmed ) 1see conversion document Allergies, Adverse Reactions, Alerts Substance Reaction Severity Status Biaxin Active codeine Nausea/Vomiting Active morphine Nausea/Vomiting Active oxyCODONE itch Active Medications ALPRAZolam 0.5 mg oral tablet 1 tabs, Oral, BID, as needed for anxiety, # 14 tabs, 0 Refill(s) Start Date: 02/03/15 Status: Ordered CeleXA 40 mg oral tablet 1 tabs, Oral, Daily, 0 Refill(s) Start Date: 06/26/14 Status: Ordered cinnamon 500 mg oral capsule 1 caps, Oral, Daily, # 100 caps, 0 Refill(s) Start Date: 06/26/14 Status: Ordered cranberry 440 mg, Oral, Daily, 0 Refill(s) Start Date: 06/26/14 Status: Ordered gabapentin 300 mg oral capsule 4 caps, Oral, TID, # 360 caps, 6 Refill(s), Pharmacy: [facility], 4 caps Oral TID,x30 days Start Date: 02/12/15 Stop Date: 09/10/15 Status: Ordered hydrochlorothiazide 25 mg oral tablet 1 tabs, Oral, Daily, # 90 tabs, 1 Refill(s), Pharmacy: [facility], 1 tabs Oral Daily Start Date: 11/15/14 Status: Ordered hydrOXYzine hydrochloride 25 mg oral tablet 1 tabs, Oral, q6hr, as needed, takes with [place], # 90 tabs, 1 Refill(s), Pharmacy: [facility], 1 tabs Oral q6hr,PRN:as needed,Instr:takes with [place]ot Special Instructions: takes with Cabot Start Date: 12/04/14 Status: Ordered [place] 5 mg-325 mg oral tablet 1 tabs, Oral, TID, as needed for pain, # 90 tabs, 0 Refill(s) Start Date: 02/12/15 Stop Date: 03/14/15 Status: Ordered [place] 5 mg-325 mg oral tablet 1 tabs, Oral, TID, as needed for pain, # 90 tabs, 0 Refill(s) Start Date: 12/13/14 Stop Date: 01/12/15 Status: Ordered predniSONE 10 mg oral tablet See Instructions, Take 6 tabs on day one and then decrease by one tablet daily until gone., # 21 tabs, 0 Refill(s), Pharmacy: [facility], Take 6 tabs on day one and then decrease by one tablet daily until gone. Special Instructions: Take 6 tabs on day one and then decrease by one tablet daily until gone. Start Date: 02/12/15 Stop Date: 02/18/15 Status: Ordered Premarin 1.25 mg oral tablet See Instructions, TAKE ONE TABLET BY MOUTH 3x WEEKLY, # 90 tabs, 2 Refill(s), Pharmacy: [facility], TAKE ONE TABLET BY MOUTH 3x WEEKLY Special Instructions: TAKE ONE TABLET BY MOUTH 3x WEEKLY Start Date: 01/09/15 Status: Ordered Vitamin D with Minerals oral tablet 2 tabs, Oral, Daily, # 30 tabs, 0 Refill(s) Start Date: 09/17/14 Status: Ordered Results No data available for this section Immunizations Vaccine Date Refusal Reason influenza virus vaccine, inactivated1 09/17/14 pneumococcal 23-polyvalent vaccine 10/12/01 tetanus-diphth toxoids (Td) [...] Response Smoking Status Former smoker; Type: Cigarettes; Number of years: 32; Stopped at age: 48 Assessment and Plan Extracted from: Title: Office Visit Note Author: Joel Lubin MD Date: 02/12/15 Assessment/Plan Peripheral neuropathy Plan: I want to increase her gabapentin. I want to take 4 tablets 3 times a day. That we'll be 3600 mg a day. I want you to follow-up in about a week. Am setting you up to see Dr. Ramos Pena. I'm also placing you on a steroid taper. I refilled your pain medication. . Orders: gabapentin, 4 caps, Oral, TID, # 360 caps, 6 Refill(s), Pharmacy: [facility], 4 caps Oral TID,x30 days HYDROcodone-acetaminophen, 1 tabs, Oral, TID, as needed for pain, # 90 tabs, 0 Refill(s) predniSONE, See Instructions, Take 6 tabs on day one and then decrease by one tablet daily until gone., # 21 tabs, 0 Refill(s), Pharmacy: [facility], Take 6 tabs on day one and then decrease by one tablet daily until gone.
--- OUTSIDE RECORDS SUMMARY | 2017-04-14 06:00 | XMS REPORT | Referral Summary ---
Author Author [facility] Organization [facility] Address Unknown Phone Unavailable Care Team Providers Care Marine Welder Name Role Phone Shanna John Primary Care Physician [phone] Encounter VC Date(s): 01/08/16 - 01/08/16 [facility] [address] [place], [place] [address] Discharge Disposition: 01-Home or Self Care Attending Physician: Brianne Arias MD Admitting Physician: Brianne Arias MD Referring Physician: Brianne Arias MD Vital Signs No data available for this section Problem List Condition Effective Dates Status Health [...] See Instructions, 2 samples given #[id number]!%@$ exp 2-2017, 0 Refill(s) Start Date: 01/08/16 Status: Ordered Ativan 1 mg oral tablet 1 mg 1 tabs, Oral, TID, as needed for anxiety, # 90 tabs, 0 Refill(s) Start Date: 12/10/15 Status: Ordered Benadryl 25 mg, as needed for allergy symptoms, 0 Refill(s) Start Date: 06/16/15 Status: Ordered CeleXA 40 mg oral tablet 40 mg 1 tabs, Oral, Daily, next refill request send to Dr. Lubin, patient is changing to him, # 90 tabs, 0 Refill(s), Pharmacy: [id number], 1 tabs Oral Daily,Instr:next refill request send to Dr. Lubin, patient is changing to him Start Date: 04/22/15 Status: Ordered CPAP Machine (DME) DME Item Dr. Bonner - 10 cmH2O, See Instructions, # 1 Each, 0 Refill(s), Supply Start Date: 10/10/15 Status: Ordered cranberry 440 mg, Oral, Daily, 0 Refill(s) Start Date: 06/26/14 Status: Ordered cyclobenzaprine 10 mg oral tablet See Instructions, 1 tabs Oral BID,x30 days,PRN:as needed for spasm, # 60 tabs, 2 Refill(s), Pharmacy: [facility], 1 tabs Oral BID,x30 days,PRN:as needed for spasm Start Date: 12/29/15 Status: Ordered Cymbalta 30 mg oral delayed release capsule 30 mg 1 caps, Oral, q8hr, do not crush or chew, # 90 caps, 0 Refill(s), other reason (Rx) Start Date: 12/10/15 Status: Ordered gabapentin 300 mg oral capsule 1,200 mg 4 caps, Oral, TID, # 360 caps, 6 Refill(s), Pharmacy: [facility], 4 caps Oral TID,x30 days Start Date: 12/29/15 Stop Date: 07/26/16 Status: Ordered hydrochlorothiazide 25 mg oral tablet See Instructions, TAKE ONE TABLET BY MOUTH ONCE DAILY, # 90 tabs, 0 Refill(s), Pharmacy: [facility], TAKE ONE TABLET BY MOUTH ONCE DAILY Start Date: 11/13/15 Status: Ordered hydrOXYzine hydrochloride 25 mg oral tablet See Instructions, TAKE ONE TABLET BY MOUTH EVERY 6 HOURS NEEDED. TAKES WITH NORCO., # 90 tabs, 3 Refill(s), Pharmacy: [facility], TAKE ONE TABLET BY MOUTH EVERY 6 HOURS NEEDED. TAKES WITH NORCO. Start Date: 11/25/15 Status: Ordered magnesium citrate See Instructions, 1 cap BID, 0 Refill(s) Start Date: 06/16/15 Status: Ordered Foster 5 mg-325 mg oral tablet 1 tabs, Oral, TID, as needed for pain, MAY TAKE ONE EXTRA DAILY / MUST LAST 30 DAYS/ DO NOT FILLL UNTIL 12-18-15, # 100 tabs, 0 Refill(s) Start Date: 12/10/15 Status: Ordered Premarin 1.25 mg oral tablet See Instructions, TAKE ONE TABLET BY MOUTH 3x WEEKLY, # 84 tabs, 0 Refill(s), TAKE ONE TABLET BY MOUTH 3x WEEKLY Start Date: 07/28/15 Status: Ordered PriLOSEC 40 mg oral delayed release capsule 40 mg 1 caps, Oral, Daily, # 90 caps, 0 Refill(s), Pharmacy: [facility], 1 caps Oral Daily Start Date: 09/26/15 Status: Ordered ProAir RespiClick 90 mcg/inh inhalation powder 2 puffs, Inhalation, q4hr, Shortness of Breath/Wheezing, Pt. has coupon for free trial - given to pt while in office., # 1 Each, 1 Refill(s), Pharmacy: [facility] Start Date: 10/10/15 Status: Ordered promethazine 25 mg oral tablet See Instructions, TAKE ONE TABLET BY MOUTH EVERY 6 HOURS NEEDED FOR NAUSEA, # 90 tabs, 2 Refill(s), eRx: [facility], TAKE ONE TABLET [...] (Tdap) adult/adol 09/19/15 influenza virus vaccine, inactivated 10/23/15 influenza virus vaccine, inactivated1 09/17/14 pneumococcal 23-polyvalent [...]
--- OUTSIDE RECORDS SUMMARY | 2017-04-14 06:00 | XMS REPORT | Referral Summary ---
Author Author [facility], [facility] Organization [facility] Address Unknown Phone Unavailable Care Team Providers Care Ship Rigger Name Role Phone Shanna John Primary Care Physician [phone] Encounter VC Date(s): 05/26/16 - 05/26/16 [facility], [address] [place] [address] Discharge Diagnosis: Fibromyalgia Discharge Diagnosis: High risk medication use Discharge Diagnosis: Chronic pain syndrome Discharge Disposition: 01-Home or Self Care Attending Physician: Marie John DO Admitting Physician: Marie John DO Vital Signs Most recent to 1 oldest [Reference Range]: Temperature Tympanic 35.9 degC [36.6-38.1 degC] *LOW* (05/26/16 10:51 AM) Peripheral Pulse 101 bpm Rate [60-100 bpm] *HI* (05/26/16 10:51 AM) Respiratory Rate 20 br/min [14-20 br/min] (05/26/16 10:51 AM) Blood Pressure 120/84 mmHg [90-140/60-90 mmHg] (05/26/16 10:51 AM) SpO2 98 % (05/26/16 10:51 AM) Problem List Condition Effective Dates Status [...] # 60 tabs, 0 Refill(s) Start Date: 05/18/16 Status: Ordered Benadryl 25 mg, as needed for allergy symptoms, 0 Refill(s) Start Date: 06/16/15 Status: Ordered CeleXA 40 mg oral tablet 40 mg 1 tabs, Oral, Daily, # 90 tabs, 1 Refill(s), Pharmacy: [facility], 1 tabs Oral Daily Start [...] BID, # 180 tabs, 1 Refill(s), Pharmacy: [facility], 1 tabs Oral BID Start [...] DAILY, # 90 tabs, 2 Refill(s), eRx: [facility], TAKE ONE TABLET BY MOUTH ONCE DAILY Start Date: 01/30/16 Status: Ordered hydrOXYzine hydrochloride 25 mg oral tablet See Instructions, TAKE ONE TABLET BY MOUTH EVERY 6 HOURS NEEDED. TAKES WITH NORCO., # 90 tabs, 3 Refill(s), Pharmacy: [facility], TAKE ONE TABLET BY MOUTH EVERY 6 HOURS NEEDED. TAKES WITH NORCO. Start Date: 11/25/15 Status: Ordered lisinopril 10 mg oral tablet 10 mg 1 tabs, Oral, Daily, # 90 tabs, 1 Refill(s), Pharmacy: [facility], 1 tabs Oral Daily Start Date: 03/10/16 Status: Ordered magnesium citrate See Instructions, 1 cap BID, 0 Refill(s) Start Date: 06/16/15 Status: Ordered Keavy 5 mg-325 mg oral tablet 2 tabs, Oral, TID, as needed for pain, / MUST LAST 30 DAYS/, # 150 tabs, 0 Refill(s) Start Date: 05/26/16 Status: Ordered ProAir RespiClick 90 mcg/inh inhalation powder 2 puffs, Inhalation, q4hr, Shortness of Breath/Wheezing, Pt. has coupon for free trial - given to pt while in office., # 1 Each, 1 Refill(s), Pharmacy: [facility] Start Date: 10/10/15 Status: Ordered [...] Visit Note Author: Marie John DO Date: 05/26/16 Assessment/Plan Chronic pain syndrome Ordered: Office Visit Level 4 Est 53201 Fibromyalgia Ordered: Office Visit Level 4 Est 39429 High risk medication use Ordered: Office Visit Level 4 Est 64861 Orders: HYDROcodone-acetaminophen, 2 tabs, Oral, TID, as needed for pain, / MUST LAST 30 DAYS/, # 150 tabs, 0 Refill(s) We willincrease herquantity [id number] to 150of her hydrocodone. She has been advised that this must last one month. With her worseningpain and inability tocontrol this on her current dose ofmedicationsprior to the orthopedic medications after a knee scopeI think it is advisable that we send her to a pain management specialistwho will hopefullybe able to adequately control her pain. She iswilling to pursue this option. We will provide her thismonth's worth of medication andone month further at 100quantity if needed based on theability to get an with pain management.
--- OUTSIDE RECORDS SUMMARY | 2017-04-14 06:01 | XMS REPORT | Referral Summary ---
Author Author [facility], [facility] Organization [facility] Address Unknown Phone Unavailable Care Team Providers Care Die Turner Name Role Phone Shanna John Primary Care Physician [phone] Encounter VC Date(s): 07/05/16 - 07/05/16 [facility], [address] [place] [address] Discharge Diagnosis: Benign essential hypertension (disorder) Discharge Diagnosis: Chronic pain syndrome Discharge Disposition: 01-Home or Self Care Attending Physician: Marie John DO Admitting Physician: Marie John DO Vital Signs Most recent to 1 oldest [Reference Range]: Peripheral Pulse 113 bpm Rate [60-100 bpm] *HI* (07/05/16 8:07 AM) Respiratory Rate 18 br/min [14-20 br/min] (07/05/16 8:07 AM) Blood Pressure 142/82 mmHg [90-140/60-90 mmHg] *HI* (07/05/16 8:07 AM) SpO2 96 % (07/05/16 8:07 AM) Problem List Condition Effective Dates Status [...] Daily, # 90 tabs, 1 Refill(s), Pharmacy: [facility], 1 tabs Oral Daily Start [...] BID, # 180 tabs, 1 Refill(s), Pharmacy: [facility], 1 tabs Oral BID Start [...] DAILY, # 90 tabs, 2 Refill(s), eRx: [facility], TAKE ONE TABLET BY MOUTH ONCE DAILY Start Date: 01/30/16 Status: Ordered hydrOXYzine hydrochloride 25 mg oral tablet See Instructions, TAKE ONE TABLET BY MOUTH EVERY 6 HOURS NEEDED TAKE WITH NORCO., # 90 tabs, eRx: [facility], TAKE ONE TABLET BY MOUTH EVERY 6 HOURS NEEDED TAKE WITH NORCO. Start Date: 06/19/16 Status: Ordered lisinopril 10 mg oral tablet See Instructions, TAKE ONE TABLET BY MOUTH ONCE DAILY, # 90 tabs, eRx: [facility], TAKE ONE TABLET BY MOUTH ONCE DAILY Start Date: 06/19/16 Status: Ordered magnesium citrate See Instructions, 1 cap BID, 0 Refill(s) Start Date: 06/16/15 Status: Ordered metoclopramide 10 mg oral tablet See Instructions, TAKE ONE TABLET BY MOUTH THREE TIMES DAILY BEFORE MEAL(S), # 90 tabs, 1 Refill(s), eRx: [facility], TAKE ONE TABLET BY MOUTH THREE TIMES DAILY BEFORE MEAL(S) Start Date: 07/05/16 Status: Ordered [place] 5 mg-325 mg oral tablet 2 tabs, Oral, TID, as needed for pain, / MUST LAST 30 DAYS/, # 150 tabs, 0 Refill(s) Start Date: 06/23/16 Status: Ordered ProAir RespiClick 90 mcg/inh inhalation powder 2 puffs, Inhalation, q4hr, Shortness of Breath/Wheezing, Pt. has coupon for free trial - given to pt while in office., # 1 Each, 1 Refill(s), Pharmacy: [facility] Start Date: 10/10/15 Status: [...] Refill(s) Start Date: 09/17/14 Status: Ordered Results Chemistry Most recent to 1 oldest [Reference Range]: Sodium Lvl [135-144 139 mEq/L mEq/L] (07/05/16 9:00 AM) Potassium Lvl 3.8 mEq/L [3.5-5.2 mEq/L] (07/05/16 9:00 AM) Chloride [99-111 103 mEq/L mEq/L] (07/05/16 9:00 AM) CO2 [22-31 mEq/L] 25 mEq/L (07/05/16 9:00 AM) AGAP [3-20] 11 (07/05/16 9:00 AM) BUN [10-20 mg/dL] 15 mg/dL (07/05/16 9:00 AM) Glucose Lvl [70-99 83 mg/dL mg/dL] (07/05/16 9:00 AM) Creatinine Lvl 0.70 mg/dL [0.57-1.11 mg/dL] (07/05/16 9:00 AM) eGFR [>60 mL/min] >60 mL/min 1 (07/05/16 9:00 AM) Calcium Lvl 9.2 mg/dL [8.9-10.5 mg/dL] (07/05/16 9:00 AM) 1Result Comment: Multiply eGFR results by 1.21 for race. Immunizations Vaccine Date Refusal Reason tetanus/diphth/pertuss (Tdap) adult/adol 09/19/15 influenza virus vaccine, inactivated 09/19/15 influenza virus vaccine, inactivated1 09/17/14 pneumococcal 23-polyvalent vaccine 09/19/15 pneumococcal 23-polyvalent vaccine 10/12/01 tetanus-diphth toxoids (Td) adult/adol 04/01/04 zoster vaccine live 10/01/13 1Result Comment: [09/24/2014] see scanned doc Procedures Procedure Date Related Diagnosis Body Site Collection of venous blood by venipuncture 07/05/16 Adenoidectomy Appendectomy Cholecystectomy Dilation and curettage Gastric [...] Visit Note Author: Marie John DO Date: 07/05/16 Assessment/Plan Benign essential hypertension (disorder) We will get a BMP as it's been about 3 months since we made changes to her blood pressure regimen,she declined A1c at this time. Ordered: Basic Metabolic Panel Office Visit Level 4 Est 16571 Chronic pain syndrome We will go ahead and get the MRI that she requests so that she can have all information before groin is the neurosurgeon. Continue with pain management. Ordered: Office Visit Level 4 Est 51544 Orders: MRI Spine Thoracic w/o Contrast
--- OUTSIDE RECORDS SUMMARY | 2017-04-14 06:01 | XMS REPORT | Referral Summary ---
Author Author [facility] Organization [facility] Address Unknown Phone Unavailable Care Team Providers Care Incident Handler Name Role Phone Shanna John Primary Care Physician [phone] Encounter VC Date(s): 01/08/16 - 01/08/16 [facility] [address] [place], [place] [address] Discharge Diagnosis: Abnormal PFT Discharge Diagnosis: Small airways disease Discharge Disposition: 01-Home or Self Care Attending Physician: Brianne Arias MD Admitting Physician: Brianne Arias MD Vital Signs Most recent to 1 oldest [Reference Range]: Peripheral Pulse 94 bpm Rate [60-100 bpm] (01/08/16 10:13 AM) Respiratory Rate 18 br/min [14-20 br/min] (01/08/16 10:13 AM) Blood Pressure 132/70 mmHg [90-140/60-90 mmHg] (01/08/16 10:13 AM) SpO2 92 % (01/08/16 10:13 AM) Problem List Condition Effective Dates Status [...] him, # 90 tabs, 0 Refill(s), Pharmacy: [facility], 1 tabs Oral Daily,Instr:next refill [...] spasm, # 60 tabs, 2 Refill(s), Pharmacy: [facility], 1 tabs Oral BID,x30 days,PRN:as needed for spasm Start Date: 12/29/15 Status: Ordered Cymbalta 30 mg oral delayed release capsule 30 mg 1 caps, Oral, q8hr, do not crush or chew, # 90 caps, 0 Refill(s), other reason (Rx) Start Date: 12/10/15 Status: Ordered gabapentin 300 mg oral capsule 1,200 mg 4 caps, Oral, TID, # 360 caps, 6 Refill(s), Pharmacy: [facility], 4 caps Oral TID,x30 days Start Date: 12/29/15 Stop Date: 07/26/16 Status: Ordered hydrochlorothiazide 25 mg oral tablet See Instructions, TAKE ONE TABLET BY MOUTH ONCE DAILY, # 90 tabs, 0 Refill(s), Pharmacy: [place] [address], TAKE ONE TABLET BY MOUTH ONCE DAILY Start Date: 11/13/15 Status: Ordered hydrOXYzine hydrochloride 25 mg oral tablet See Instructions, TAKE ONE TABLET BY MOUTH EVERY 6 HOURS NEEDED. TAKES WITH NORCO., # 90 tabs, 3 Refill(s), Pharmacy: [place] [address], TAKE ONE TABLET BY MOUTH EVERY 6 HOURS NEEDED. TAKES WITH NORCO. Start Date: 11/25/15 Status: Ordered magnesium citrate See Instructions, 1 cap BID, 0 Refill(s) Start Date: 06/16/15 Status: Ordered Dilworth 5 mg-325 mg oral tablet 1 tabs, [...] Daily, # 90 caps, 0 Refill(s), Pharmacy: [place] [address], 1 caps Oral Daily Start Date: 09/26/15 Status: Ordered ProAir RespiClick 90 mcg/inh inhalation powder 2 puffs, Inhalation, q4hr, Shortness of Breath/Wheezing, Pt. has coupon for free trial - given to pt while in office., # 1 Each, 1 Refill(s), Pharmacy: [place] [address] Start Date: 10/10/15 Status: Ordered promethazine 25 mg oral tablet See Instructions, TAKE ONE TABLET BY MOUTH EVERY 6 HOURS NEEDED FOR NAUSEA, # 90 tabs, 2 Refill(s), eRx: [place] [address], TAKE ONE TABLET BY MOUTH EVERY 6 [...] Extracted from: Title: Ambulatory Patient Education Author: Brianne Arias Date: 01/08/16 [facility] Chronic Obstructive Pulmonary Disease Chronic obstructive pulmonary disease (COPD) is a common lung condition in which airflow from the lungs is limited. COPD is a general term that can be used to describe many different lung problems that limit airflow, including both chronic bronchitis and emphysema. If you have COPD, your lung function will probably never return to normal, but there are measures you can take to improve lung function and make yourself feel better. CAUSES Smoking (common). Exposure to secondhand smoke. Genetic problems. Chronic inflammatory lung diseases or recurrent infections. SYMPTOMS Shortness of breath, especially with physical activity. Deep, persistent (chronic) cough with a large amount of thick mucus. Wheezing. Rapid breaths (tachypnea). Amin or bluish discoloration (cyanosis) of the skin, especially in your fingers, toes, or lips. Fatigue. Weight loss. Frequent infections or episodes when breathing symptoms become much worse (exacerbations). Chest tightness. DIAGNOSIS Your health care provider will take a medical history and perform a physical examination to diagnose COPD. Additional tests for COPD may include: Lung (pulmonary) function tests. Chest X-ray. CT scan. Blood tests. TREATMENT Treatment for COPD may include: Inhaler and nebulizer medicines. These help manage the symptoms of COPD and make your breathing more comfortable. Supplemental oxygen. Supplemental oxygen is only helpful if you have a low oxygen level in your blood. Exercise and physical activity. These are beneficial for nearly all people with COPD. Lung surgery or transplant. Nutrition therapy to gain weight, if you are underweight. Pulmonary rehabilitation. This may involve working with a team of health care providers and specialists, such as respiratory, occupational, and physical therapists. HOME CARE INSTRUCTIONS Take all medicines (inhaled or pills) as directed by your health care provider. Avoid hubb-urn-ffbupiq medicines or cough syrups that dry up your airway (such as antihistamines) and slow down the elimination of secretions unless instructed otherwise by your health care provider. If you are a smoker, the most important thing that you can do is stop smoking. Continuing to smoke will cause further lung damage and breathing trouble. Ask your health care provider for help with quitting smoking. He or she can direct you to community resources or hospitals that provide support. Avoid exposure to irritants such as smoke, chemicals, and fumes that aggravate your breathing. Use oxygen therapy and pulmonary rehabilitation if directed by your health care provider. If you require home oxygen therapy, ask your health care provider whether you should purchase a pulse oximeter to measure your oxygen level at home. Avoid contact with individuals who have a contagious illness. Avoid extreme temperature and humidity changes. Eat healthy foods. Eating smaller, more frequent meals and resting before meals may help you maintain your strength. Stay active, but balance activity with periods of rest. Exercise and physical activity will help you maintain your ability to do things you want to do. Preventing infection and hospitalization is very important when you have COPD. Make sure to receive all the vaccines your health care provider recommends , especially the pneumococcal and influenza vaccines. Ask your health care provider whether you need a pneumonia vaccine. Learn and use relaxation techniques to manage stress. Learn and use controlled breathing techniques as directed by your health care provider. Controlled breathing techniques include: Pursed lip breathing. Start by breathing in (inhaling) through your nose for 1 second. Then, purse your lips as if you were going to whistle and breathe out (exhale) through the pursed lips for 2 seconds. Diaphragmatic breathing. Start by putting one hand on your abdomen just above your waist. Inhale slowly through your nose. The hand on your abdomen should move out. Then purse your lips and exhale slowly. You should be able to feel the hand on your abdomen moving in as you exhale. Learn and use controlled coughing to clear mucus from your lungs. Controlled coughing is a series of short, progressive coughs. The steps of controlled coughing are: 1.Lean your head slightly forward. 2.Breathe in deeply using diaphragmatic breathing. 3.Try to hold your breath for 3 seconds. 4.Keep your mouth slightly open while coughing twice. 5.Spit any mucus out into a tissue. 6.Rest and repeat the steps once or twice as needed. SEEK MEDICAL CARE IF: You are coughing up more mucus than usual. There is a change in the color or thickness of your mucus. Your breathing is more labored than usual. Your breathing is faster than usual. SEEK IMMEDIATE MEDICAL CARE IF: You have shortness of breath while you are resting. You have shortness of breath that prevents you from: Being able to talk. Performing your usual physical activities. You have chest pain lasting longer than 5 minutes. Your skin color is more cyanotic than usual. You measure low oxygen saturations for longer than 5 minutes with a pulse oximeter. MAKE SURE YOU: Understand these instructions. Will watch your condition. Will get help right away if you are not doing well or get worse. This information is not intended to replace advice given to you by your health care provider. Make sure you discuss any questions you have with your health care provider. Document Released: 08/24/2006 Document Revised: 09/02/2015 Document Reviewed: [employer] Patient Information 2015 [employer]. No follow up information was provided. Extracted from: Title: Office Visit Note Author: Brianne Arias Date: 01/08/16 [facility]O Assessment/Plan 1.Small airways disease Patient with significant improvement with use of albuterol. Clinically sounds like a small airway disease and would like to continue withthe use of albuterol as needed in addition would like to add a controller which is twice daily. Patient verbalized understanding of the needto be compliant with the medication in addition to rinse her mouth after usage. She is also to use albuterol as needed for now. 2.Abnormal PFT Patient unable to walk today 6 minute walk test though unable to get dynamic evaluation of her diffusion capacity. Patient had recent surgery with no postop complicationmaking it less likely the patient has significantpulmonary hypertension etiology. We will repeat a 6 minute walk test next time and the patient is unable to comply then we'll proceed with an echocardiogram if she is able to tolerate
--- OUTSIDE RECORDS SUMMARY | 2017-04-14 06:01 | XMS REPORT | Referral Summary ---
Author Author [facility] Organization [facility] Address Unknown Phone Unavailable Care Team Providers Care High School English Teacher Name Role Phone Shanna John Primary Care Physician [phone] Encounter VC Date(s): 09/28/16 - 09/28/[address] [facility] [address] [facility] [address] [place], [place] [address] Discharge Diagnosis: Abnormal laboratory test Discharge Diagnosis: Paresthesias Discharge Disposition: 01-Home or Self Care Attending Physician: Ace Layton MD Admitting Physician: Ace Layton MD Referring Physician: Ace Layton MD Vital Signs Most recent to 1 oldest [Reference Range]: Peripheral Pulse 109 bpm Rate [60-100 bpm] *HI* (09/28/16 10:09 AM) Blood Pressure 122/72 mmHg [90-140/60-90 mmHg] (09/28/16 10:09 AM) SpO2 96 % (09/28/16 10:09 AM) Problem List Condition Effective Dates Status [...] # 60 tabs, 0 Refill(s) Start Date: 09/20/16 Status: Ordered Benadryl 25 mg, as needed for allergy symptoms, 0 Refill(s) Start Date: 06/16/15 Status: Ordered CeleXA 40 mg oral tablet 40 mg 1 tabs, Oral, Daily, # 90 tabs, 1 Refill(s), Pharmacy: [facility], 1 tabs Oral Daily Start Date: [...] MOUTH TWICE DAILY, # 180 tabs, eRx: [facility], TAKE ONE TABLET BY MOUTH TWICE DAILY [...] DAILY, # 90 tabs, 1 Refill(s), [facility]: [facility], TAKE ONE TABLET BY MOUTH ONCE DAILY Start Date: 08/16/16 Status: Ordered hydrOXYzine hydrochloride 25 mg oral tablet See Instructions, TAKE ONE TABLET BY MOUTH EVERY 6 HOURS NEEDED TAKE WITH NORCO., # 90 tabs, eRx: [facility], TAKE ONE TABLET BY MOUTH EVERY 6 HOURS NEEDED TAKE WITH NORCO. Start Date: 06/19/16 Status: Ordered lisinopril 10 mg oral tablet See Instructions, TAKE ONE TABLET BY MOUTH ONCE DAILY, # 90 tabs, eRx: [facility], TAKE ONE TABLET BY MOUTH ONCE DAILY Start Date: 06/19/16 Status: Ordered magnesium citrate See Instructions, 1 cap BID, 0 Refill(s) Start Date: 06/16/15 Status: Ordered metoclopramide 10 mg oral tablet See Instructions, TAKE ONE TABLET BY MOUTH THREE TIMES DAILY BEFORE MEAL(S), # 90 tabs, eRx: [facility], TAKE ONE TABLET BY MOUTH THREE TIMES DAILY BEFORE MEAL(S) Start Date: 09/03/16 Status: Ordered [place] 5 mg-325 mg oral tablet 2 tabs, Oral, TID, as needed for pain, MUST LAST 30 DAYS, # 120 tabs, 0 Refill(s) Start Date: 07/26/16 Status: Ordered ProAir RespiClick 90 mcg/inh inhalation powder 2 puffs, Inhalation, q4hr, Shortness of Breath/Wheezing, Pt. has coupon for free trial - given to pt while in office., # 1 Each, 1 Refill(s), Pharmacy: [facility]28 Start Date: 10/10/15 Status: Ordered [...] Most recent to 1 oldest [Reference Range]: Total Protein 7.0 gm/dL [6.1-7.7 gm/dL] (09/28/16 11:08 AM) Immunizations Vaccine Date Refusal Reason tetanus/diphth/pertuss (Tdap) [...] Visit Note Author: Ace Layton MD Date: 09/28/16 Assessment/Plan Abnormal laboratory test Ordered: Immunoelectrophoresis, Serum Immunoglobulin Free Light [place]ains[place] Paresthesias Ordered: Immunoelectrophoresis, Serum Immunoglobulin Free [place] 1.- Paresthesias 2.- Abnormal lab Length dependent presentation. I explained to the patient that there is no evidence for large fiber neuropathy, and I dont belive symptoms are entirely related to lumbar radiculopathy. There may be a component of small fiber neuropathy likely related to diabetes (will add A1C). I offered a skin biopsy for evaluation of small fiber neuropathy, but pt prefers to hold off for now pending neurosurgery evaluation. Will repeat SPEP and free light chains as it was abnormal before. 3.- Involuntary jerking. I witnessed few of them, alternating side transient jerks, triggered by suggestion. Will do MRI brain and EEG for evaluation but unlikely to be seizure related. Jerks were inconsistent, absent during the entire interview but influenced by suggestionhighly suggestive of psychogenic etiology. Time spent with the patient was25 minutes. Greater than 50% of that time was spent counseling the patient, discussing treatment plan and options, answering questions, and follow up plan.
--- OUTSIDE RECORDS SUMMARY | 2017-04-14 06:01 | XMS REPORT | Referral Summary ---
Author Author [facility], [facility] Organization [facility] Address Unknown Phone Unavailable Care Team Providers Care Biophysics Professor Name Role Phone Shanna John Primary Care Physician [phone] Encounter VC Date(s): 12/10/15 - 12/10/15 [facility], [address] [place] [address] Discharge Diagnosis: Anxiety Discharge Diagnosis: Neuropathy Discharge Diagnosis: Abnormal urine odor Discharge Disposition: 01-Home or Self Care Attending Physician: Marie John DO Vital Signs Most recent to 1 oldest [Reference Range]: Peripheral Pulse 116 bpm Rate [60-100 bpm] *HI* (12/10/15 3:33 PM) Respiratory Rate 18 br/min [14-20 br/min] (12/10/15 3:33 PM) Blood Pressure 140/78 mmHg [90-140/60-90 mmHg] (12/10/15 3:33 PM) SpO2 96 % (12/10/15 3:33 PM) Problem List Condition Effective Dates Status [...] morphine Nausea/Vomiting Active oxyCODONE itch Active Medications Ativan 1 mg oral tablet 1 mg [...] him, # 90 tabs, 0 Refill(s), Pharmacy: [facility], 1 tabs Oral Daily,Instr:next refill [...] for spasm, # 60 tabs, 2 Refill(s), eRx: [facility], 1 tabs Oral BID,x30 days,PRN:as needed for spasm Start Date: 09/15/15 Status: Ordered Cymbalta 30 mg oral delayed release capsule 30 mg 1 caps, Oral, q8hr, do not crush or chew, # 90 caps, 0 Refill(s), other reason (Rx) Start Date: 12/10/15 Status: Ordered gabapentin 300 mg oral capsule 1,200 mg 4 caps, Oral, TID, # 360 caps, 6 Refill(s), Pharmacy: [facility], 4 caps Oral TID,x30 days Start Date: 02/12/15 Stop Date: 09/10/15 Status: Ordered hydrochlorothiazide 25 mg oral tablet See Instructions, TAKE ONE TABLET BY MOUTH ONCE DAILY, # 90 tabs, 0 Refill(s), Pharmacy: [facility], TAKE ONE TABLET BY MOUTH ONCE DAILY Start Date: 11/13/15 Status: Ordered hydrOXYzine hydrochloride 25 mg oral tablet See Instructions, TAKE ONE TABLET BY MOUTH EVERY 6 HOURS NEEDED. TAKES WITH NORCO., # 90 tabs, 3 Refill(s), Pharmacy: [facility], TAKE ONE TABLET BY MOUTH EVERY 6 HOURS NEEDED. TAKES WITH NORCO. Start Date: 11/25/15 Status: Ordered magnesium citrate mL, Oral, Once, 0 Refill(s) Start Date: 06/16/15 Status: Ordered [place] 5 mg-325 mg oral tablet 1 tabs, Oral, TID, as needed for pain, MAY TAKE ONE EXTRA DAILY / MUST LAST 30 DAYS/ DO NOT FILLL UNTIL 12-18-15, # 100 tabs, 0 Refill(s) Start Date: 12/10/15 Status: Ordered predniSONE 10 mg oral tablet See Instructions, Take 60mg for 3days, 50mg for 3 days, 40mg for 3 days, 30mg for 3 days, 20mg for 3 days, 10mg for 3days and then stop, # 63 tabs, 0 Refill(s ), Pharmacy: [facility], Take 60mg for 3days, 50mg for 3 days, 40mg for 3 days, 3... Start Date: 12/10/15 Stop Date: 01/03/16 Status: Ordered Premarin 1.25 mg oral tablet See Instructions, TAKE ONE TABLET BY MOUTH 3x WEEKLY, # 84 tabs, 0 Refill(s), TAKE ONE TABLET BY MOUTH 3x WEEKLY Start Date: 07/28/15 Status: Ordered PriLOSEC 40 mg oral delayed release capsule 40 mg 1 caps, Oral, Daily, # 90 caps, 0 Refill(s), Pharmacy: [facility], 1 caps Oral Daily Start Date: 09/26/15 Status: Ordered ProAir RespiClick 90 mcg/inh inhalation powder 2 puffs, Inhalation, q4hr, Shortness of Breath/Wheezing, Pt. has coupon for free trial - given to pt while in office., # 1 Each, 1 Refill(s), Pharmacy: [facility]28 Start Date: 10/10/15 Status: Ordered promethazine 25 mg oral tablet See Instructions, TAKE ONE TABLET BY MOUTH EVERY 6 HOURS NEEDED FOR NAUSEA, # 90 tabs, 1 Refill(s), Pharmacy: [facility], TAKE ONE TABLET BY MOUTH EVERY 6 HOURS NEEDED FOR NAUSEA Start Date: 10/15/15 Status: Ordered Sav[place] 25 mg oral tablet [...] Visit Note Author: Marie John DO Date: 12/10/15 Assessment/Plan Abnormal urine odor We will obtain a UA. Further recommendations after results. Ordered: Office Visit Level 4 Est 50898 Anxiety We will DCXanaxand start Ativan1 mg 3 times a day when necessary. Ordered: Office Visit Level 4 Est 20427 Neuropathy We will initiate referral toanother neurologist. We will increase her hydrocodoneto 100tabletsfrom 90. We did discuss that this must last a month. Controlled substance agreement signed today. Ordered: Office Visit Level 4 Est 58096 Orders: DULoxetine, 30 mg 1 caps, Oral, q8hr, do not crush or chew, # 90 caps , 0 Refill(s), other reason (Rx) HYDROcodone-acetaminophen, 1 tabs, Oral, TID, as needed for pain, MAY TAKE ONE EXTRA DAILY / MUST LAST 30 DAYS/ DO NOT FILLL UNTIL 12-18-15, # 100 tabs, 0 Refill(s) LORazepam, 1 mg 1 tabs, Oral, TID, as needed for anxiety, # 90 tabs, 0 Refill( s) predniSONE, See Instructions, Take 60mg for 3days, 50mg for 3 days, 40mg for 3 days, 30mg for 3 days, 20mg for 3 days, 10mg for 3days and then stop, # 63 tabs, 0 Refill(s), Pharmacy: [facility], Take 60mg for 3days, 50mg for 3 days, 40mg for 3 days, 3... Urinalysis with Culture if Indicated
--- OUTSIDE RECORDS SUMMARY | 2017-04-14 06:02 | XMS REPORT | Referral Summary ---
Author Author [facility] Organization [facility] Address Unknown Phone Unavailable Care Team Providers Care Fitting Supervisor Name Role Phone Delvin Lubin Primary Care Physician [phone] Encounter Date(s): 10/10/15 - 10/10/15 [facility] [address] [place], [place] [address] Discharge Diagnosis: Shortness of breath Discharge Disposition: 01-Home or Self Care Attending [...] # 60 tabs, 0 Refill(s) Start Date: 09/09/15 Status: Ordered Benadryl 25 mg, as needed for allergy symptoms, 0 Refill(s) Start Date: 06/16/15 Status: Ordered CeleXA 40 mg oral tablet 40 mg 1 tabs, Oral, Daily, next refill request send to Dr. Lubin, patient is changing to him, # 90 tabs, 0 Refill(s), Pharmacy: [facility], 1 tabs Oral Daily,Instr:next [...] spasm, # 60 tabs, 2 Refill(s), eRx: [facility], 1 tabs Oral BID,x30 days,PRN:as needed for spasm Start Date: 09/15/15 Status: Ordered Cymbalta 30 mg oral delayed release capsule 30 mg 1 caps, Oral, BID, do not crush or chew, # 60 caps, 0 Refill(s) Start Date: 06/16/15 Status: Ordered gabapentin 300 mg oral capsule 1,200 mg 4 caps, Oral, TID, # 360 caps, 6 Refill(s), Pharmacy: [facility], 4 caps Oral TID,x30 days Start Date: 02/12/15 Stop Date: 09/10/15 Status: Ordered hydrochlorothiazide 25 mg oral tablet See Instructions, TAKE ONE TABLET BY MOUTH ONCE DAILY, # 90 tabs, eRx: [facility], TAKE ONE TABLET BY MOUTH ONCE DAILY Start Date: 08/25/15 Status: Ordered hydrOXYzine hydrochloride 25 mg oral tablet See Instructions, TAKE ONE TABLET BY MOUTH EVERY 6 HOURS NEEDED. TAKES WITH NORCO., # 90 tabs, eRx: [facility], TAKE ONE TABLET BY MOUTH EVERY 6 HOURS NEEDED. TAKES WITH NORCO. Start Date: 08/22/15 Status: Ordered magnesium citrate mL, Oral, Once, 0 Refill(s) Start Date: 06/16/15 Status: Ordered [place] 5 mg-325 mg oral tablet 1 tabs, Oral, TID, as needed for pain, # 90 tabs, 0 Refill(s) Start Date: 09/18/15 Status: Ordered Premarin 1.25 mg oral tablet See Instructions, TAKE ONE TABLET BY MOUTH 3x WEEKLY, # 84 tabs, 0 Refill(s), TAKE ONE TABLET BY MOUTH 3x WEEKLY Start Date: 07/28/15 Status: Ordered PriLOSEC 40 mg oral delayed release capsule 40 mg 1 caps, Oral, Daily, # 90 caps, 0 Refill(s), Pharmacy: [facility], 1 caps Oral Daily Start Date: 09/26/15 Status: Ordered ProAir RespiClick 90 mcg/inh inhalation powder 2 puffs, Inhalation, q4hr, Shortness of Breath/Wheezing, Pt. has coupon for free trial - given to pt while in office., # 1 Each, 1 Refill(s), Pharmacy: [facility] Start Date: 10/10/15 Status: Ordered promethazine 25 mg oral tablet See Instructions, TAKE ONE TABLET BY MOUTH EVERY 6 HOURS NEEDED FOR NAUSEA, # 90 tabs, eRx: [facility], TAKE ONE TABLET BY MOUTH EVERY 6 HOURS NEEDED FOR NAUSEA Start Date: 09/02/15 Status: Ordered [place] 25 mg oral tablet [...]
--- OUTSIDE RECORDS SUMMARY | 2017-04-14 06:02 | XMS REPORT | Continuity of Care Document ---
Author Author [facility] Organization [facility] Address Unknown Phone Unavailable Support Name Relationship Address Phone YUE ENGLISH MD Caregiver [address] [place] [address] Unavailable JAMAL QUINTANILLA DO Caregiver Unknown Unavailable HAJA RAMEY Next Of Kin [address] [place] [address] Insurance Providers Guarantor Olvin Ramey Address [address] [place] [address] Email [email or web address] Payer Medicare Part A Only Policy Number [id number] Subscriber's Name Olvin Ramey Relationship 18 Self Effective Date 13 Payer [facility] Policy Number [id number] Subscriber's Name aHja Ramey Relationship 01 Spouse Group Number [id number] Effective Date 05 Advance Directives Directive Response Recorded Date/Time Ordered Resuscitation Status Full Code 04/09/16 3:23pm Resuscitation Documents on File No 04/12/16 10:15am DPOA for Healthcare Only No 04/12/16 10:15am Problems Active Problems Medical Problem Onset Date Status Back pain Unknown Acute IT band syndrome Unknown Acute Medications Current Home Medications Medication Dose Units Route Directions Days Qty Instructions Start Date Biotin Unknown Strength Tablet Unknown Dose Oral Bedtime Citalopram Hydrobromide (Celexa) 40 Mg Tablet 1 Tab Oral Bedtime 12/25/15 Cranberry Extract (Cranberry Concentrate) 500 Mg Capsule 2 Cap Oral Bedtime 04/06/16 Cyanocobalamin/Folic Acid (Vitamin R96-Dwcul Acid Tablet) 1 Each Tablet 2 Tab Oral Twice A Day 04/06/16 Cyclobenzaprine Hcl 10 Mg Tablet 1 Tab Oral Twice A Day MAY CAUSE DROWSINESS OR DIZZINESS 12/25/15 Diphenhydramine Hcl (Benadryl) 25 Mg Capsule 1-2 Cap Oral Every 8 Hours as needed for Itching 12/25/15 Duloxetine Hcl (Cymbalta) 30 Mg Capsule 1 Cap Oral Every 8 Hours 12/25/15 Ergocalciferol (Vitamin D2) (Vitamin D) Unknown Strength Tablet Unknown Dose Oral Bedtime 04/06/16 Estrogens,Conjugated (Premarin) 1.25 Mg Tablet 1.25 Mg Oral Mwf 01/05/10 Gabapentin 300 Mg Capsule 2 Cap Oral Three Times A Day 12/25/15 Hydrochlorothiazide 25 Mg Tablet 25 Mg Oral Daily 09/03/13 Hydroxyzine Hcl (Atarax) 25 Mg Tablet 25 Mg Oral As Needed Lisinopril 10 Mg Tablet 10 Mg Oral Bedtime Take 1 tablet, by mouth, one time a day (at BEDTIME). 04/06/16 Lorazepam (Ativan) 1 Mg Tablet 1 Mg Oral Tidprn 12/25/15 Magnesium Citrate 100 Mg Tablet 1 Tab Oral Twice A Day 01/05/16 Milnacipran Hcl (Savella) 25 Mg Tablet 1 Tab Oral Twice A Day Multivitamin (Multivitamins) 1 Each Tablet 1 Tab Oral Twice A Day 12/25/15 Oxycodone Hcl/Acetaminophen (Percocet 5-325 Mg Tablet) 1 Each Tablet 1-2 Tab Oral Every 6 Hours as needed for Pain 50 Tablet Take 1-2 tablet(s), by mouth, every 6 hrs as needed for pain. 04/12/16 Promethazine Hcl (Phenergan) 25 Mg Tablet 25 Mg Oral As Needed Turmeric Root Extract (Turmeric) 500 Mg Capsule 1 Cap Oral Bedtime 04/06/16 Past Home Medications Medication Directions Ordered Status Oxycodone Hcl/Acetaminophen (Percocet 5-325 Mg Tablet) 1 Each Tablet, 1 Tab Oral Every 6 Hours as needed for Pain 04/06/16 Discontinued Social History Social History Problem Response Recorded Date/Time Onset Date Status Chewing Tobacco Status No 09/04/2013 10:34am Not Applicable Not Applicable Hx Substance Use No 04/06/2016 11:26am Not Applicable Not Applicable Hx Alcohol Use No 04/12/2016 10:50am Not Applicable Not Applicable Has the pt used tobacco in the last 12 months No 04/06/2016 11:26am Not Applicable Not Applicable Query Response Start Date Stop Date Smoking Status Former smoker Hospital Discharge Instructions Instructions: Care Instructions: Reason for Hospitalization: INTERNAL DERRANGEMENT RIGHT KNEE I was in the hospital because (patient own words): TO HAVE A RIGHT KNEE SCOPE Discharge Diet: Reg Follow Up Appointments: JAYSON VINI 04-16- @11:00AM Pending Lab / Results: No Pending Lab Condition at time of discharge: Good Plan of Care Discharge Date 04/12/16 2:00pm Instructions/Education Provided [facility] Knee Scope Prescriptions See Medication Section Functional Status Query Response Date Recorded Ability to complete ADL's impeded by No change April 12, 2016 10:15am Allergies, Adverse Reactions, Alerts Allergen Type Severity Reaction Status Last Updated hydromorphone HCl Adverse Reaction Unknown N/V,ITCHING Active 04/12/16 hydrocodone bit Adverse Reaction Unknown N/V,ITCHING Active 04/12/16 oxycodone HCl Adverse Reaction Unknown N/V,ITCHING Active 04/12/16 Morphine Allergy Unknown N/V,ITCHING,RASH Active 04/12/16 Codeine Adverse Reaction Unknown N/V,ITCHING Active 04/12/16 Clarithromycin Allergy Unknown N/V,FOUL TASTE IN MOUTH Active 09/03/13 Tramadol Adverse Reaction Unknown ITCHING Active 12/25/15 Immunizations Query Response on File Recorded Date/Time Hx Influenza Vaccination Y -201404/06/16 11:26am Hx Pneumococcal Vaccination Y 04/06/16 11:26am Hx Influenza Vaccination Y -201404/06/16 11:26am Influenza Vaccine Hx FALL 201401/06/16 11:15am Vital Signs Acute Vital Signs Vital Response Date/Time Temperature (Fahrenheit) 99.2 deg F (96.8 - 99.1) 04/12/2016 12:50pm Temperature (Calculated Celsius) 37.33480 degrees C (36.0 - 37.3) 04/12/2016 12:50pm Temperature Source Temporal 04/12/2016 12:50pm Pulse Rate (adult) 90 bpm (60 - 100) 04/12/2016 1:40pm Respiratory Rate 16 breaths/min (10 - 20) 04/12/2016 1:40pm O2 Sat by Pulse Oximetry 92 % (90 - 100) 04/12/2016 1:40pm Oxygen Delivery Method Room Air 04/12/2016 1:40pm Oxygen Flow Rate 1.00 L/min 04/12/2016 1:10pm Blood Pressure 139/65 mm Hg 04/12/2016 1:40pm Blood Pressure Source Automatic Cuff 04/12/2016 1:40pm Height (Feet) 5 feet 04/12/2016 9:45am Height (Inches) 5.00 inches 04/12/2016 9:45am Weight (Kilograms) 124.500 kg 04/12/2016 9:45am Body Mass Index (BMI) 45.7 04/12/2016 9:45am Results Laboratory Results Test Name Result Units Flags Reference Collection Date/Time Result Date/ Time Comments Glucometer 106 mg/dL 65-110 04/12/2016 10:22am 04/12/2016 10:25am Procedures Procedure Status Date Provider(s) Knee arthroscopy, right Active 04/12/16 YUE ENGLISH MD Encounters Encounter Location Arrival/Admit Date Discharge/Depart Date Attending Provider Departed [facility] 04/12/16 9:27am 04/12/16 2: 00pm YUE ENGLISH MD
--- OUTSIDE RECORDS SUMMARY | 2017-04-14 06:02 | XMS REPORT | Referral Summary ---
Author Author [facility], [facility] Organization [facility] Address Unknown Phone Unavailable Care Team Providers Care Uniformer Name Role Phone Shanna John Primary Care Physician [phone] Encounter VC Date(s): 10/19/16 - 10/19/16 [facility], [address] [place] [address] Discharge Diagnosis: Chronic back pain greater than 3 months duration Discharge Diagnosis: Diabetes Discharge Diagnosis: Anxiety Discharge Disposition: 01-Home or Self Care Attending Physician: Marie John DO Admitting Physician: Marie John DO Vital Signs Most recent to 1 oldest [Reference Range]: Temperature Tympanic 35.8 degC [36.6-38.1 degC] *LOW* (10/19/16 1:05 PM) Peripheral Pulse 77 bpm Rate [60-100 bpm] (10/19/16 1:05 PM) Respiratory Rate 20 br/min [14-20 br/min] (10/19/16 1:05 PM) Blood Pressure 110/62 mmHg [90-140/60-90 mmHg] (10/19/16 1:05 PM) SpO2 92 % (10/19/16 1:05 PM) Problem List Condition Effective Dates Status [...] Daily, # 90 tabs, 1 Refill(s), Pharmacy: [facility], 1 tabs Oral Daily [...] MOUTH TWICE DAILY, # 180 tabs, eRx: [facility], TAKE ONE TABLET BY MOUTH TWICE DAILY Start Date: 07/19/16 Status: Ordered Cymbalta 30 mg oral delayed release capsule 30 mg 1 caps, Oral, q8hr, do not crush or chew, # 100 caps, 10 Refill(s) Start Date: 10/19/16 Status: Ordered gabapentin 300 mg oral capsule 600 mg 2 caps, Oral, TID, # 200 caps, 3 Refill(s), 4 caps Oral TID,x30 days Start Date: 10/19/16 Stop Date: 02/16/17 Status: Ordered hydrochlorothiazide 25 mg oral tablet See Instructions, TAKE ONE TABLET BY MOUTH ONCE DAILY, # 90 tabs, 1 Refill(s), eRx: [facility], TAKE ONE TABLET BY MOUTH ONCE DAILY Start Date: 08/16/16 Status: Ordered hydrOXYzine hydrochloride 25 mg oral tablet See Instructions, TAKE ONE TABLET BY MOUTH EVERY 6 HOURS NEEDED TAKE WITH NORCO., # 90 tabs, eRx: [facility], TAKE ONE TABLET BY MOUTH EVERY 6 HOURS NEEDED TAKE WITH NORCO. Start Date: 06/19/16 Status: Ordered lisinopril 10 mg oral tablet See Instructions, TAKE ONE TABLET BY MOUTH ONCE DAILY, # 90 tabs, 3 Refill(s), Pharmacy: [place] [facility] [id number], TAKE ONE TABLET BY MOUTH ONCE DAILY Start Date: 10/19/16 Status: Ordered magnesium citrate See Instructions, 1 cap BID, 0 Refill(s) Start Date: 06/16/15 Status: Ordered metoclopramide 10 mg oral tablet See Instructions, TAKE ONE TABLET BY MOUTH THREE TIMES DAILY BEFORE MEAL(S), # 90 tabs, eRx: [facility], TAKE ONE TABLET BY MOUTH THREE TIMES DAILY BEFORE MEAL(S) Start Date: 09/03/16 Status: Ordered [place] 5 mg-325 mg oral tablet 2 tabs, [...] office., # 1 Each, 1 Refill(s), Pharmacy: [place] [id number] Start Date: 10/10/15 Status: Ordered promethazine 25 mg oral tablet See Instructions, TAKE ONE TABLET BY MOUTH EVERY 6 HOURS NEEDED FOR NAUSEA, # 90 tabs, 1 Refill(s), Pharmacy: [place] [id number], TAKE ONE TABLET BY MOUTH EVERY 6 [...] (Tdap) adult/adol 09/19/15 influenza virus vaccine, inactivated 10/19/16 influenza virus vaccine, inactivated 09/19/15 influenza virus [...] Visit Note Author: Marie John DO Date: 10/19/16 Assessment/Plan Anxiety Okay to refill Xanax, patient should return to clinic in 3 months for reevaluation. Ordered: Office Visit Level 4 Est 08926 Chronic back pain greater than 3 months duration Continue as per neurosurgery and pain management, we did refill her Phenergan to go with her [place] to help with nausea today as well as her Cymbalta, gabapentin, etc. Ordered: Office Visit Level 4 Est 01182 Diabetes We discussed that her A1c is down to 6.0, continue diet and lifestyle changes that are making an impact on this. Ordered: Office Visit Level 4 Est 49126 Need for influenza vaccination Flu shot provided today. Ordered: Office Visit Level 4 Est 95395
--- OUTSIDE RECORDS SUMMARY | 2017-04-14 06:02 | XMS REPORT | Referral Summary ---
Author Author [facility] Organization [facility] Address Unknown Phone Unavailable Care Team Providers Care Heeler Machine Name Role Phone Shanna John Primary Care Physician [phone] Encounter VC Date(s): 05/25/16 - 05/25/16 [facility] [address] [place], [place] [address] Discharge Diagnosis: Abnormal PFT Discharge Diagnosis: Physical deconditioning Discharge Diagnosis: Small airways disease Discharge Disposition: 01-Home or Self Care Attending Physician: Brianne Arias MD Admitting Physician: Brianne Arias MD Vital Signs Most recent to 1 oldest [Reference Range]: Peripheral Pulse 102 bpm Rate [60-100 bpm] *HI* (05/25/16 1:07 PM) Respiratory Rate 20 br/min [14-20 br/min] (05/25/16 1:07 PM) Blood Pressure 138/80 mmHg [90-140/60-90 mmHg] (05/25/16 1:07 PM) SpO2 93 % (05/25/16 1:07 PM) Problem List Condition Effective Dates Status [...] Daily, # 90 tabs, 1 Refill(s), Pharmacy: [facility], 1 tabs Oral Daily [...] BID, # 180 tabs, 1 Refill(s), Pharmacy: [facility], 1 tabs Oral BID Start [...] DAILY, # 90 tabs, 2 Refill(s), eRx: [facility], TAKE ONE TABLET BY MOUTH ONCE DAILY Start Date: 01/30/16 Status: Ordered hydrOXYzine hydrochloride 25 mg oral tablet See Instructions, TAKE ONE TABLET BY MOUTH EVERY 6 HOURS NEEDED. TAKES WITH NORCO., # 90 tabs, 3 Refill(s), Pharmacy: [facility], TAKE ONE TABLET BY MOUTH EVERY 6 HOURS NEEDED. TAKES WITH NORCO. Start Date: 11/25/15 Status: Ordered lisinopril 10 mg oral tablet 10 mg 1 tabs, Oral, Daily, # 90 tabs, 1 Refill(s), Pharmacy: [facility], 1 tabs Oral Daily Start Date: 03/10/16 Status: Ordered magnesium citrate See Instructions, 1 cap BID, 0 Refill(s) Start Date: 06/16/15 Status: Ordered [place] 5 mg-325 mg oral tablet 1 tabs, Oral, TID, as needed for pain, MAY TAKE ONE EXTRA DAILY / MUST LAST 30 DAYS/, # 100 tabs, 0 Refill(s) Start Date: 05/05/16 Status: Ordered ProAir RespiClick 90 mcg/inh inhalation powder 2 puffs, Inhalation, q4hr, Shortness of Breath/Wheezing, Pt. has coupon for free trial - given to pt while in office., # 1 Each, 1 Refill(s), Pharmacy: [facility] Start Date: 10/10/15 Status: [...] Office Visit Note Author: Brianne Arias Date: 05/25/16 Salvatore AMARO Assessment/Plan 1.Small airways disease Patient noncompliant with her Advair as she does not want to finish her mouth. Patient wasadvised thatwe'll change her to Spiriva as an does andassess response. 2.Abnormal PFT Patient pulmonary function testing showed reduction diffusion capacity however the 6 and a walk test did not show any desaturation No further workup needed 3.Physical deconditioning Patient with a diagnosis of chronic fatigue syndrome and has very limited activity level. Today on the 6 minute walk test patient did notchange in heart rate or blood pressure suggesting severe physical deconditioning. I believe that's semi-reason she is short of breath Orders: pulmonary stress testing simple 52088
--- OUTSIDE RECORDS SUMMARY | 2017-04-14 06:02 | XMS REPORT | Referral Summary ---
Author Organization Unknown Address Unknown Phone Unavailable Care Team Providers Care Religion Teacher Name Role Phone Delvin Lubin Primary Care Physician [phone] Encounter VC Date(s): 12/26/14 - 12/26/14 [facility] [place] [address] , [facility] [address] [place], [place] [address] Discharge Disposition: Home or Self Care Attending Physician: Joel Lubin MD Admitting Physician: Joel Lubin MD Vital Signs No data available for [...] Active Medications CeleXA 40 mg oral tablet 1 tabs, Oral, Daily, 0 Refill(s) Start Date: 06/26/14 Status: Ordered cinnamon 500 mg oral capsule 1 caps, Oral, Daily, # 100 caps, 0 Refill(s) Start Date: 06/26/14 Status: Ordered cranberry 440 mg, Oral, Daily, 0 Refill(s) Start Date: 06/26/14 Status: Ordered gabapentin 300 mg oral capsule 3 caps, Oral, TID, # 810 caps, 11 Refill(s), Pharmacy: [facility], 3 caps Oral TID,x90 days Start Date: 11/05/14 Stop Date: 10/20/17 Status: Ordered hydrochlorothiazide 25 mg oral tablet 1 tabs, Oral, Daily, # 90 tabs, 1 Refill(s), Pharmacy: [facility], 1 tabs Oral Daily Start Date: 11/15/14 Status: Ordered hydrOXYzine hydrochloride 25 mg oral tablet 1 tabs, Oral, q6hr, as needed, takes with [place], # 90 tabs, 1 Refill(s), Pharmacy: [facility], 1 tabs Oral q6hr,PRN:as needed,Instr:takes with [place] Special Instructions: takes with [place] Start Date: 12/04/14 Status: Ordered [place] 5 mg-325 mg oral tablet 1 tabs, Oral, TID, as needed for pain, # 90 tabs, 0 Refill(s) Start Date: 12/13/14 Stop Date: 01/12/15 Status: Ordered Premarin 1.25 mg oral tablet See Instructions, TAKE ONE TABLET BY MOUTH 3x WEEKLY, # 90 tabs, eRx: [facility], TAKE ONE TABLET BY MOUTH EVERY DAY Special Instructions: TAKE ONE TABLET BY MOUTH 3x WEEKLY Start Date: 08/19/14 Status: Ordered Vitamin D with Minerals oral [...] Stopped at age: 48 Assessment and Plan No data available for this section
--- OUTSIDE RECORDS SUMMARY | 2017-04-14 06:02 | XMS REPORT | Referral Summary ---
Author Author [facility], [facility] Organization [facility] Address Unknown Phone Unavailable Care Team Providers Care Photo Retoucher Name Role Phone Shanna John Primary Care Physician [phone] Encounter VC Date(s): 01/22/16 - 01/22/16 [facility], [address] [place] [address] Discharge Diagnosis: Benign essential hypertension (disorder) Discharge Diagnosis: Chronic pain syndrome Discharge Diagnosis: Anxiety Discharge Disposition: 01-Home or Self Care Attending Physician: Marie John DO Admitting Physician: Marie John DO Vital Signs Most recent to 1 oldest [Reference Range]: Peripheral Pulse 113 bpm Rate [60-100 bpm] *HI* (01/22/16 9:11 AM) Blood Pressure 130/70 mmHg [90-140/60-90 mmHg] (01/22/16 9:11 AM) SpO2 98 % (01/22/16 9:11 AM) Problem List Condition Effective Dates Status [...] See Instructions, 2 samples given #5ZP!%@$ exp -2016, 0 Refill(s) Start Date: 01/08/16 Status: Ordered ALPRAZolam 0.5 mg oral tablet 0.5 mg 1 tabs, Oral, BID, as needed for anxiety, Fax to [facility], # 60 tabs, 0 Refill(s) Start Date: 01/22/16 Status: Ordered Benadryl 25 mg, as needed for allergy symptoms, 0 Refill(s) Start Date: 06/16/15 Status: Ordered CeleXA 40 mg oral tablet 40 mg 1 tabs, Oral, Daily, next refill request send to Dr. Lubin, patient is changing to him, # 90 tabs, 0 Refill(s), Pharmacy: [facility], 1 tabs Oral Daily,Instr:next [...] spasm, # 60 tabs, 2 Refill(s), Pharmacy: [facility], 1 tabs Oral BID,x30 [...] TID, # 360 caps, 6 Refill(s), Pharmacy: [facility], 4 caps Oral TID,x30 days Start Date: 12/29/15 Stop Date: 07/26/16 Status: Ordered hydrochlorothiazide 25 mg oral tablet See Instructions, TAKE ONE TABLET BY MOUTH ONCE DAILY, # 90 tabs, 0 Refill(s), Pharmacy: [facility], TAKE ONE TABLET BY MOUTH ONCE DAILY Start Date: 11/13/15 Status: Ordered hydrOXYzine hydrochloride 25 mg oral tablet See Instructions, TAKE ONE TABLET BY MOUTH EVERY 6 HOURS NEEDED. TAKES WITH NORCO., # 90 tabs, 3 Refill(s), Pharmacy: [facility], TAKE ONE TABLET BY MOUTH EVERY 6 HOURS NEEDED. TAKES WITH [facility]CO. Start Date: 11/25/15 Status: Ordered lisinopril 10 mg oral tablet 10 mg 1 tabs, Oral, Daily, # 30 tabs, 1 Refill(s), Pharmacy: [place] [address], 1 tabs Oral Daily Start Date: 01/22/16 Status: Ordered magnesium citrate See Instructions, 1 cap BID, 0 Refill(s) Start Date: 06/16/15 Status: Ordered [place] 5 mg-325 mg oral tablet 1 tabs, Oral, TID, as needed for pain, MAY TAKE ONE EXTRA DAILY / MUST LAST 30 DAYS/, # 100 tabs, 0 Refill(s) Start Date: 01/22/16 Status: Ordered Premarin 1.25 mg oral tablet See Instructions, TAKE ONE TABLET BY MOUTH 3x WEEKLY, # 84 tabs, 0 Refill(s), TAKE ONE TABLET BY MOUTH 3x WEEKLY Start Date: 07/28/15 Status: Ordered PriLOSEC 40 mg oral delayed release capsule 40 mg 1 caps, Oral, Daily, # 90 caps, 0 Refill(s), Pharmacy: [place] [address], 1 caps Oral Daily Start Date: 09/26/15 Status: Ordered ProAir RespiClick 90 mcg/inh inhalation powder 2 puffs, Inhalation, q4hr, Shortness of Breath/Wheezing, Pt. has coupon for free trial - given to pt while in office., # 1 Each, 1 Refill(s), Pharmacy: [facility] Start Date: 10/10/15 Status: Ordered promethazine 25 mg oral tablet See Instructions, TAKE ONE TABLET BY MOUTH EVERY 6 HOURS NEEDED FOR NAUSEA, # 90 tabs, 2 Refill(s), eRx: [facility], TAKE ONE TABLET BY [...] Visit Note Author: Marie John DO Date: 01/22/16 Assessment/Plan Anxiety We will switch her back to Xanax and she will be limited to 2 a day and a quantity of 60 for a month. Return to clinic in 4-6 weeks. Ordered: Office Visit Level 4 Est 39846 Benign essential hypertension (disorder) We will add lisinopril in light of these high blood pressures and healthcare settings other than ours. We'll start at a low dose at 10. Patient has to borrow blood pressure cuff from her mother and take blood pressures intermittentlyfor the next 4-6 weeks and then we'll reevaluate clinic. Ordered: Office Visit Level 4 Est 97996 Chronic pain syndrome Patient provided prescription today. Ordered: Office Visit Level 4 Est 25734 Orders: ALPRAZolam, 0.5 mg 1 tabs, Oral, BID, as needed for anxiety, Fax to [facility], # 60 tabs, 0 Refill(s) HYDROcodone-acetaminophen, 1 tabs, Oral, TID, as needed for pain, MAY TAKE ONE EXTRA DAILY / MUST LAST 30 DAYS/, # 100 tabs, 0 Refill(s) lisinopril, 10 mg 1 tabs, Oral, Daily, # 30 tabs, 1 Refill(s), Pharmacy: [facility], 1 tabs Oral Daily
--- OUTSIDE RECORDS SUMMARY | 2017-04-14 06:02 | XMS REPORT | Referral Summary ---
Author Author [facility] Organization [facility] Address Unknown Phone Unavailable Care Team Providers Care Racing Secretary And Handicapper Name Role Phone Shanna John Primary Care Physician [phone] Encounter VC Date(s): 05/25/16 - 05/25/16 [facility] [address] [place], [place] [address] Discharge Diagnosis: SOB (shortness of breath) Discharge Disposition: 01-Home or Self Care Attending Physician: Hiram Naik MD Admitting Physician: Hiram Naik MD Vital Signs No data available for [...] Daily, # 90 tabs, 1 Refill(s), Pharmacy: [facility], 1 tabs Oral Daily [...] BID, # 180 tabs, 1 Refill(s), Pharmacy: [place] [address], 1 tabs Oral BID Start Date: 04/06/16 [...] DAILY, # 90 tabs, 2 Refill(s), eRx: [facility], TAKE ONE TABLET BY MOUTH ONCE DAILY Start Date: 01/30/16 Status: Ordered hydrOXYzine hydrochloride 25 mg oral tablet See Instructions, TAKE ONE TABLET BY MOUTH EVERY 6 HOURS NEEDED. TAKES WITH [facility]., # 90 tabs, 3 Refill(s), Pharmacy: [facility], TAKE ONE TABLET BY MOUTH EVERY 6 HOURS NEEDED. TAKES WITH [facility]CO. Start Date: 11/25/15 Status: Ordered lisinopril 10 mg oral tablet 10 mg 1 tabs, Oral, Daily, # 90 tabs, 1 Refill(s), Pharmacy: [facility], 1 tabs Oral Daily Start Date: 03/10/16 Status: Ordered magnesium citrate See Instructions, 1 cap BID, 0 Refill(s) Start Date: 06/16/15 Status: Ordered [place] 5 mg-325 mg oral tablet 1 tabs, [...] office., # 1 Each, 1 Refill(s), Pharmacy: [facility] Start Date: 10/10/15 Status: Ordered Savella 25 [...]
--- OUTSIDE RECORDS SUMMARY | 2017-04-14 06:03 | XMS REPORT | Referral Summary ---
Author Author [facility] [place] [employer] Organization [facility] [place] [employer] [facility] Address Unknown Phone Unavailable Care Team Providers Care Color Specialist Name Role Phone DoraShanna Primary Care Physician [phone] Encounter VC Date(s): 10/22/15 - 10/22/15 [facility] [address] [place] [address] [place], [place] [address] Discharge Disposition: 01-Home or Self Care Attending Physician: Brett Koehler MD Admitting Physician: Brett Koehler MD Referring Physician: Brett Koehler MD Vital Signs No data available for [...] # 60 tabs, 0 Refill(s) Start Date: 10/13/15 Status: Ordered Benadryl 25 mg, as needed for allergy symptoms, 0 Refill(s) Start Date: 06/16/15 Status: Ordered CeleXA 40 mg oral tablet 40 mg 1 tabs, Oral, Daily, next refill request send to Dr. Lubin, patient is changing to him, # 90 tabs, 0 Refill(s), Pharmacy: [facility], 1 tabs Oral Daily,Instr:next [...] spasm, # 60 tabs, 2 Refill(s), eRx: [facility], 1 tabs Oral BID,x30 days,PRN:as needed for spasm Start Date: 09/15/15 Status: Ordered Cymbalta 30 mg oral delayed release capsule 30 mg 1 caps, Oral, BID, do not crush or chew, # 60 caps, 0 Refill(s) Start Date: 06/16/15 Status: Ordered gabapentin 300 mg oral capsule 1,200 mg 4 caps, Oral, TID, # 360 caps, 6 Refill(s), Pharmacy: [facility], 4 caps Oral TID,x30 days Start Date: 02/12/15 Stop Date: 09/10/15 Status: Ordered hydrochlorothiazide 25 mg oral tablet See Instructions, TAKE ONE TABLET BY MOUTH ONCE DAILY, # 90 tabs, eRx: [facility], TAKE ONE TABLET BY MOUTH ONCE DAILY Start Date: 08/25/15 Status: Ordered hydrOXYzine hydrochloride 25 mg oral tablet See Instructions, TAKE ONE TABLET BY MOUTH EVERY 6 HOURS NEEDED. TAKES WITH [facility]CO., # 90 tabs, 1 Refill(s), Pharmacy: [facility], TAKE ONE TABLET BY MOUTH EVERY 6 HOURS NEEDED. TAKES WITH NORCO. Start Date: 10/15/15 Status: Ordered magnesium citrate mL, Oral, Once, 0 Refill(s) Start Date: 06/16/15 Status: Ordered [place] 5 mg-325 mg oral tablet 1 tabs, Oral, TID, as needed for pain, # 90 tabs, 0 Refill(s) Start Date: 10/21/15 Status: Ordered Premarin 1.25 mg oral tablet See Instructions, TAKE ONE TABLET BY MOUTH 3x WEEKLY, # 84 tabs, 0 Refill(s), TAKE ONE TABLET BY MOUTH 3x WEEKLY Start Date: 07/28/15 Status: Ordered PriLOSEC 40 mg oral delayed release capsule 40 mg 1 caps, Oral, Daily, # 90 caps, 0 Refill(s), Pharmacy: [facility], 1 caps Oral Daily Start Date: 09/26/15 Status: Ordered ProAir RespiClick 90 mcg/inh inhalation powder 2 puffs, Inhalation, q4hr, Shortness of Breath/Wheezing, Pt. has coupon for free trial - given to pt while in office., # 1 Each, 1 Refill(s), Pharmacy: [facility] 242 Start Date: 10/10/15 Status: Ordered promethazine 25 mg oral tablet See Instructions, TAKE ONE TABLET BY MOUTH EVERY 6 HOURS NEEDED FOR NAUSEA, # 90 tabs, 1 Refill(s), Pharmacy: [facility], TAKE ONE TABLET BY [...] 48. Assessment and Plan Extracted from: Title: CPAP PRESSURE/SUPPLIES Author: Lori Guerra PROJECT DRILLING ENGINEER Date: Pt requests cpap pressure increased to 10cm h20 per her old settings. MIRAGE FX FH:SMALL, S10 FILTERS, STD TUBING(PER REQUEST)
--- OUTSIDE RECORDS SUMMARY | 2017-04-14 06:03 | XMS REPORT | Referral Summary ---
Author Author [facility] [place] Organization [facility] [place] Address Unknown Phone Unavailable Care Team Providers Care Skydiving Instructor Name Role Phone DoraShanna Primary Care Physician [phone] Encounter VC Date(s): 02/25/16 - 02/25/16 [facility] [place] [address] [place], [place] [address] Discharge Disposition: 01-Home or Self Care Attending Physician: Brett Koehler MD Admitting Physician: Brett Koehler MD Vital Signs No [...] # 60 tabs, 0 Refill(s) Start Date: 02/19/16 Status: Ordered Benadryl 25 mg, as needed for allergy symptoms, 0 Refill(s) Start Date: 06/16/15 Status: Ordered CeleXA 40 mg oral tablet 40 mg 1 tabs, Oral, Daily, # 90 tabs, 1 Refill(s), Pharmacy: [facility], 1 tabs Oral Daily [...] spasm, # 60 tabs, 2 Refill(s), Pharmacy: [facility], [...] DAILY, # 90 tabs, 2 Refill(s), eRx: [facility], TAKE ONE TABLET BY MOUTH ONCE DAILY Start Date: 01/30/16 Status: Ordered hydrochlorothiazide 25 mg oral tablet See Instructions, TAKE ONE TABLET BY MOUTH ONCE DAILY, # 90 tabs, 0 Refill(s), Pharmacy: [facility], TAKE ONE TABLET BY MOUTH ONCE DAILY Start Date: 11/13/15 Status: Ordered hydrOXYzine hydrochloride 25 mg oral tablet See Instructions, TAKE ONE TABLET BY MOUTH EVERY 6 HOURS NEEDED. TAKES WITH [facility]CO., # 90 tabs, 3 Refill(s), Pharmacy: [facility], TAKE ONE TABLET BY MOUTH EVERY 6 HOURS NEEDED. TAKES WITH NORCO. Start Date: 11/25/15 Status: Ordered lisinopril 10 mg oral tablet 10 mg 1 tabs, Oral, Daily, # 30 tabs, 1 Refill(s), Pharmacy: [facility] 242, 1 tabs Oral Daily Start Date: 01/22/16 Status: Ordered magnesium citrate See Instructions, 1 cap BID, 0 Refill(s) Start Date: 06/16/15 Status: Ordered [place] 5 mg-325 mg oral tablet 1 tabs, Oral, TID, as needed for pain, MAY TAKE ONE EXTRA DAILY / MUST LAST 30 DAYS/, # 100 tabs, 0 Refill(s) Start Date: 02/19/16 Status: Ordered Premarin 1.25 mg oral tablet See Instructions, TAKE ONE TABLET BY MOUTH 3x WEEKLY, # 84 tabs, 0 Refill(s), TAKE ONE TABLET BY MOUTH 3x WEEKLY Start Date: 07/28/15 Status: Ordered PriLOSEC 40 mg oral delayed release capsule 40 mg 1 caps, Oral, Daily, # 90 caps, 0 Refill(s), Pharmacy: [facility], 1 caps Oral Daily Start Date: 09/26/15 Status: Ordered ProAir RespiClick 90 mcg/inh inhalation powder 2 puffs, Inhalation, q4hr, Shortness of Breath/Wheezing, Pt. has coupon for free trial - given to pt while in office., # 1 Each, 1 Refill(s), Pharmacy: [place] [address] Start Date: 10/10/15 Status: Ordered promethazine 25 mg oral tablet See Instructions, TAKE ONE TABLET BY MOUTH EVERY 6 HOURS NEEDED FOR NAUSEA, # 90 tabs, 2 Refill(s), eRx: [facility], TAKE [...] Assessment and Plan Extracted from: Title: CPAP SUPPLIES Author: Lori Guerra RETAIL SERVICE SPECIALIST Date: 02/25/16 COMFORT GEL BLUE PETITE MASK, NO HEADGEAR.
--- OUTSIDE RECORDS SUMMARY | 2017-04-14 06:03 | XMS REPORT | Referral Summary ---
Author Author [facility], [facility] Organization [facility] Address Unknown Phone Unavailable Care Team Providers Care Booster Pump Operator Name Role Phone Shanna John Primary Care Physician [phone] Encounter Date(s): 10/13/15 - 10/13/15 [facility], [address] [place] [address] Discharge Diagnosis: Chronic fatigue Discharge Diagnosis: Neuropathy Discharge Diagnosis: Chronic pruritus Discharge Diagnosis: Fibromyalgia Discharge Diagnosis: Diabetes Discharge Diagnosis: MARLENI on CPAP Discharge Disposition: 01-Home or Self Care Attending Physician: Marie John DO Admitting Physician: Marie John DO Vital Signs Most recent to 1 oldest [Reference Range]: Temperature Tympanic 36.9 degC [36.6-38.1 degC] (10/13/15 10:34 AM) Peripheral Pulse 106 bpm Rate [60-100 bpm] *HI* (10/13/15 10:34 AM) Respiratory Rate 17 br/min [14-20 br/min] (10/13/15 10:34 AM) Blood Pressure 130/80 mmHg [90-140/60-90 mmHg] (10/13/15 10:34 AM) SpO2 96 % (10/13/15 10:34 AM) Problem List Condition Effective Dates Status [...] him, # 90 tabs, 0 Refill(s), Pharmacy: [facility], 1 tabs [...] spasm, # 60 tabs, 2 Refill(s), eRx: [facility], 1 tabs Oral BID,x30 days,PRN:as needed for spasm Start Date: 09/15/15 Status: Ordered Cymbalta 30 mg oral delayed release capsule 30 mg 1 caps, Oral, BID, do not crush or chew, # 60 caps, 0 Refill(s) Start Date: 06/16/15 Status: Ordered gabapentin 300 mg oral capsule 1,200 mg 4 caps, Oral, TID, # 360 caps, 6 Refill(s), Pharmacy: [facility], 4 caps Oral TID,x30 days Start Date: 02/12/15 Stop Date: 09/10/15 Status: Ordered hydrochlorothiazide 25 mg oral tablet See Instructions, TAKE ONE TABLET BY MOUTH ONCE DAILY, # 90 tabs, eRx: [facility], TAKE ONE TABLET BY MOUTH ONCE DAILY Start Date: 08/25/15 Status: Ordered hydrOXYzine hydrochloride 25 mg oral tablet See Instructions, TAKE ONE TABLET BY MOUTH EVERY 6 HOURS NEEDED. TAKES WITH [facility]CO., # 90 tabs, eRx: [facility], TAKE ONE TABLET BY MOUTH EVERY 6 HOURS NEEDED. TAKES WITH [facility]CO. Start Date: 08/22/15 Status: Ordered magnesium citrate mL, Oral, Once, 0 Refill(s) Start Date: 06/16/15 Status: Ordered [place] 5 mg-325 mg oral tablet 1 tabs, [...] Daily, # 90 caps, 0 Refill(s), Pharmacy: [place] [address], 1 caps Oral Daily Start Date: 09/26/15 Status: Ordered ProAir RespiClick 90 mcg/inh inhalation powder 2 puffs, Inhalation, q4hr, Shortness of Breath/Wheezing, Pt. has coupon for free trial - given to pt while in office., # 1 Each, 1 Refill(s), Pharmacy: [place] [address] Start Date: 10/10/15 Status: Ordered promethazine 25 mg oral tablet See Instructions, TAKE ONE TABLET BY MOUTH EVERY 6 HOURS NEEDED FOR NAUSEA, # 90 tabs, eRx: [place] [address], TAKE ONE TABLET BY MOUTH EVERY 6 [...] Visit Note Author: Marie John DO Date: 10/13/15 Assessment/Plan Chronic fatigue Continue Savella and other current medications. Ordered: Office Visit Level 4 Est 95353 Chronic pruritus Continue hydroxyzine. Diabetes Continue current medications. Labs are up-to-date at this time. Ordered: Office Visit Level 4 Est 83396 Fibromyalgia Continue current medications. Ordered: Office Visit Level 4 Est [address] Moreland. Ordered: Office Visit Level 4 Est 42784 MARLENI on CPAP Continue with sleep medicine.
--- OUTSIDE RECORDS SUMMARY | 2017-04-14 06:03 | XMS REPORT | Referral Summary ---
Author Organization Unknown Address Unknown Phone Unavailable Care Team Providers Care Warehouse Order Filler Name Role Phone Delvin Lubin Primary Care Physician [phone] Encounter VC Date(s): 12/26/14 - 12/26/14 [facility] [place] [address] , [facility] [address] [place], [place] [address] Discharge Disposition: Home or Self Care Attending [...] TID, # 810 caps, 11 Refill(s), Pharmacy: [id number], 3 caps Oral TID,x90 days Start Date: 11/05/14 Stop Date: 10/20/17 Status: Ordered hydrochlorothiazide 25 mg oral tablet 1 tabs, Oral, Daily, # 90 tabs, 1 Refill(s), Pharmacy: [facility], 1 tabs Oral Daily Start Date: 11/15/14 Status: Ordered hydrOXYzine hydrochloride 25 mg oral tablet 1 tabs, Oral, q6hr, as needed, takes with Valera, # 90 tabs, 1 Refill(s), Pharmacy: [facility], 1 tabs Oral q6hr,PRN:as needed,Instr:takes with Valera Special Instructions: takes with Valera Start Date: 12/04/14 Status: Ordered Valera 5 mg-325 mg oral tablet 1 tabs, Oral, TID, as needed for pain, # 90 tabs, 0 Refill(s) Start Date: 12/13/14 Stop Date: 01/12/15 Status: Ordered Premarin 1.25 mg oral tablet See Instructions, TAKE ONE TABLET BY MOUTH 3x WEEKLY, # 90 tabs, eRx: [facility], TAKE ONE TABLET BY [...] 50 Assessment and Plan Extracted from: Title: CPAP Pre-determination form Author: Juliette Petersen CAR SCRUBBER Date: 12/05/14 submitted to [facility] [place] Pre-determination requested from [facility] for patient to obtain a new cpap since it is just under 5 years old (September 2010) Form was completed and an order for replacement from Dr Bonner was faxed to [facility] [place] today ([phone]). I spoke with Lois Joe by phone.
--- OUTSIDE RECORDS SUMMARY | 2017-04-14 06:03 | XMS REPORT | Referral Summary ---
Author Author [facility], [facility] Organization [facility] Address Unknown Phone Unavailable Care Team Providers Care Manager Cosmetics Name Role Phone Shanna John Primary Care Physician [phone] Encounter VC Date(s): 03/10/16 - 03/10/16 [facility] [place] [place] [address] Discharge Diagnosis: Benign essential hypertension (disorder) Discharge Diagnosis: Head or neck swelling, mass, or lump Discharge Disposition: 01-Home or Self Care Attending Physician: Marie John DO Admitting Physician: Marie John DO Vital Signs Most recent to 1 oldest [Reference Range]: Temperature Tympanic 36.9 degC [36.6-38.1 degC] (03/10/16 10:55 AM) Peripheral Pulse 117 bpm Rate [60-100 bpm] *HI* (03/10/16 10:55 AM) Respiratory Rate 17 br/min [14-20 br/min] (03/10/16 10:55 AM) Blood Pressure 160/91 mmHg [90-140/60-90 mmHg] *HI* (03/10/16 10:55 AM) SpO2 99 % (03/10/16 10:55 AM) Problem List Condition Effective Dates Status [...] BID, as needed for anxiety, [facility], # 60 tabs, 0 Refill(s) Start Date: 02/19/16 Status: Ordered amoxicillin 500 mg oral tablet 500 mg 1 tabs, Oral, TID, X 10 days, # 30 tabs, 0 Refill(s), Pharmacy: [facility], 1 tabs Oral TID,x10 days Start Date: 03/10/16 Stop Date: 03/20/16 Status: Ordered Benadryl 25 mg, as needed for allergy symptoms, 0 Refill(s) Start Date: 06/16/15 Status: Ordered CeleXA 40 mg oral tablet 40 mg 1 tabs, Oral, Daily, # 90 tabs, 1 Refill(s), Pharmacy: [facility], 1 tabs Oral Daily [...] spasm, # 60 tabs, 2 Refill(s), Pharmacy: [facility], 1 tabs Oral BID,x30 [...] DAILY, # 90 tabs, 2 Refill(s), eRx: [facility], TAKE ONE TABLET BY MOUTH ONCE DAILY Start Date: 01/30/16 Status: Ordered hydrochlorothiazide 25 mg oral tablet See Instructions, TAKE ONE TABLET BY MOUTH ONCE DAILY, # 90 tabs, 0 Refill(s), Pharmacy: [facility], TAKE ONE TABLET BY MOUTH ONCE DAILY Start Date: 11/13/15 Status: Ordered hydrOXYzine hydrochloride 25 mg oral tablet See Instructions, TAKE ONE TABLET BY MOUTH EVERY 6 HOURS NEEDED. TAKES WITH NORCO., # 90 tabs, 3 Refill(s), Pharmacy: [facility], TAKE ONE TABLET BY MOUTH EVERY 6 HOURS NEEDED. TAKES WITH NORCO. Start Date: 11/25/15 Status: Ordered lisinopril 10 mg oral tablet 10 mg 1 tabs, Oral, Daily, # 90 tabs, 1 Refill(s), Pharmacy: [facility], 1 tabs Oral Daily Start Date: 03/10/16 Status: Ordered magnesium citrate See Instructions, 1 cap BID, 0 Refill(s) Start Date: 06/16/15 Status: Ordered [place] 5 mg-325 mg oral tablet 1 tabs, [...] Daily, # 90 caps, 0 Refill(s), Pharmacy: [facility], 1 caps Oral Daily Start Date: 09/26/15 Status: Ordered ProAir RespiClick 90 mcg/inh inhalation powder 2 puffs, Inhalation, q4hr, Shortness of Breath/Wheezing, Pt. has coupon for free trial - given to pt while in office., # 1 Each, 1 Refill(s), Pharmacy: [facility] Start Date: 10/10/15 Status: Ordered promethazine 25 mg oral tablet See Instructions, TAKE ONE TABLET BY MOUTH EVERY 6 HOURS NEEDED FOR NAUSEA, # 90 tabs, 2 Refill(s), eRx: [facility], TAKE ONE TABLET BY [...] Visit Note Author: Marie John DO Date: 03/10/16 Assessment/Plan Benign essential hypertension (disorder) Continue lisinopril, return to clinic in 3 months. Ordered: Office Visit Level 4 Est 62452 Head or neck swelling, mass, or lump Discussed with patient that this could be a lymph node or another parotid enlargement. We discussed that the appropriate thing to do would be to pursue an ultrasoundbut if she was unwilling to do this we could try an antibiotic first to see if this would help with the swelling. However if the antibiotic does not work patient understands that she needs to have an ultrasound. She will call us if the mass continues after the antibiotic is finished. Ordered: Office Visit Level 4 Est 93996 Orders: amoxicillin, 500 mg 1 tabs, Oral, TID, X 10 days, # 30 tabs, 0 Refill( s), Pharmacy: [facility], 1 tabs Oral TID,x10 days gabapentin, 600 mg 2 caps, Oral, TID, # 180 caps, 6 Refill(s), other reason ( Rx), 4 caps Oral TID,x30 days lisinopril, 10 mg 1 tabs, Oral, Daily, # 90 tabs, 1 Refill(s), Pharmacy: [facility], 1 tabs Oral Daily
--- OUTSIDE RECORDS SUMMARY | 2017-04-14 06:03 | XMS REPORT | Referral Summary ---
Author Author [facility], [facility] Organization [facility] Address Unknown Phone Unavailable Care Team Providers Care Corporate Consultant Name Role Phone Shanna John Primary Care Physician [phone] Encounter Date(s): 06/16/15 - 06/16/15 [facility] [place] [place] [address] Discharge Diagnosis: Anemia Discharge Disposition: 01-Home or Self Care Attending Physician: Joel Lubin MD Vital Signs Most recent to 1 oldest [Reference Range]: Temperature Tympanic 36.7 degC [36.6-38.1 degC] (06/16/15 8:25 AM) Peripheral Pulse 96 bpm Rate [60-100 bpm] (06/16/15 8:25 AM) Respiratory Rate 16 br/min [14-20 br/min] (06/16/15 8:25 AM) Blood Pressure 150/90 mmHg [90-140/60-90 mmHg] *HI* (06/16/15 8:25 AM) Problem List Condition Effective Dates Status [...] him, # 90 tabs, 0 Refill(s), Pharmacy: [facility], 1 tabs Oral Daily,Instr:next refill [...] spasm, # 60 tabs, 2 Refill(s), eRx: [facility], 1 tabs Oral BID,x30 days,PRN:as needed for spasm Start Date: 09/15/15 Status: Ordered Cymbalta 30 mg oral delayed release capsule 30 mg 1 caps, Oral, q8hr, do not crush or chew, # 90 caps, 0 Refill(s), other reason (Rx) Start Date: 12/10/15 Status: Ordered gabapentin 300 mg oral capsule 1,200 mg 4 caps, Oral, TID, # 360 caps, 6 Refill(s), Pharmacy: [facility], 4 caps Oral TID,x30 days Start Date: 02/12/15 Stop Date: 09/10/15 Status: Ordered hydrochlorothiazide 25 mg oral tablet See Instructions, TAKE ONE TABLET BY MOUTH ONCE DAILY, # 90 tabs, 0 Refill(s), Pharmacy: [facility], TAKE ONE TABLET BY MOUTH ONCE DAILY Start Date: 11/13/15 Status: Ordered hydrOXYzine hydrochloride 25 mg oral tablet See Instructions, TAKE ONE TABLET BY MOUTH EVERY 6 HOURS NEEDED. TAKES WITH NORCO., # 90 tabs, 3 Refill(s), Pharmacy: [facility], TAKE ONE TABLET BY MOUTH EVERY 6 HOURS NEEDED. TAKES WITH NORCO. Start Date: 11/25/15 Status: Ordered magnesium citrate mL, Oral, Once, 0 Refill(s) Start Date: 06/16/15 Status: Ordered [place] 5 mg-325 mg oral tablet 1 tabs, [...] # 63 tabs, 0 Refill(s ), Pharmacy: [facility] [address], Take 60mg for 3days, 50mg for 3 [...] Daily, # 90 caps, 0 Refill(s), Pharmacy: [facility] [address], 1 caps Oral Daily Start Date: 09/26/15 Status: Ordered ProAir RespiClick 90 mcg/inh inhalation powder 2 puffs, Inhalation, q4hr, Shortness of Breath/Wheezing, Pt. has coupon for free trial - given to pt while in office., # 1 Each, 1 Refill(s), Pharmacy: [facility] Start Date: 10/10/15 Status: Ordered promethazine 25 mg oral tablet See Instructions, TAKE ONE TABLET BY MOUTH EVERY 6 HOURS NEEDED FOR NAUSEA, # 90 tabs, 1 Refill(s), Pharmacy: [facility] [address], TAKE ONE TABLET BY MOUTH EVERY 6 [...] Visit Note Author: Joel Lubin MD Date: 06/16/15 Assessment/Plan Anemia Ordered: CBC w/ Differential Iron Level Benign essential hypertension (disorder) Diabetes Ordered: Comprehensive Metabolic Panel Hemoglobin A1c Lipid Panel Fibromyalgia Neuropathy Plan: I added Flexeril so that you can take it for pain as needed. Continue all other medications and follow-up in 3 months. I did give you the option of seeing a pain specialist or somebody who is more knowledgeable about prescribing medications for pain but you're content with the current plan. Orders: cyclobenzaprine, 10 mg 1 tabs, Oral, BID, as needed for spasm, X 30 days, # 60 tabs, 1 Refill(s), Pharmacy: [facility], 1 tabs Oral BID, x30 days,PRN:as needed for spasm
--- OUTSIDE RECORDS SUMMARY | 2017-04-14 06:03 | XMS REPORT | Referral Summary ---
Author Author [facility], [facility] Organization [facility] Address Unknown Phone Unavailable Care Team Providers Care Elderly Caregiver Name Role Phone Delvin Lubin Primary Care Physician [phone] Encounter Date(s): 09/19/15 - 09/19/15 [facility] [place], [address] [place] [address] Discharge Diagnosis: Shortness of breath Discharge Diagnosis: Hypersomnia with sleep apnea Discharge Diagnosis: Anemia Discharge Diagnosis: Pleural effusion Discharge Diagnosis: Fibromyalgia Discharge Diagnosis: Dyspnea Discharge Disposition: 01-Home or Self Care Attending Physician: Estelle Lobato APRN Admitting Physician: Estelle Lobato APRN Vital Signs Most recent to 1 oldest [Reference Range]: Temperature Tympanic 36.2 degC [36.6-38.1 degC] *LOW* (09/19/15 9:13 AM) Peripheral Pulse 100 bpm Rate [60-100 bpm] (09/19/15 9:13 AM) Respiratory Rate 16 br/min [14-20 br/min] (09/19/15 9:13 AM) Blood Pressure 142/80 mmHg [90-140/60-90 mmHg] *HI* (09/19/15 9:13 AM) SpO2 97 % (09/19/15 9:13 AM) Problem List Condition Effective Dates Status [...] him, # 90 tabs, 0 Refill(s), Pharmacy: [facility], 1 tabs Oral Daily,Instr:next refill request send to Dr. Lubin, patient is changing to him Start Date: 04/22/15 Status: Ordered CeleXA 40 mg oral tablet See Instructions, 1 tabs Oral Daily,Instr:next refill request send to Dr. Lubin, patient is changing to him, # 90 tabs, 2 Refill(s), eRx: [facility], 1 tabs Oral Daily,Instr:next refill request send to Dr. Lubin, patient is changing to... Start Date: 07/07/15 Status: Ordered cranberry 440 mg, Oral, Daily, 0 Refill(s) Start Date: 06/26/14 Status: Ordered cyclobenzaprine 10 mg oral tablet See Instructions, 1 tabs Oral BID,x30 days,PRN:as needed for spasm, # 60 tabs, 2 Refill(s), eRx: [facility], 1 tabs Oral BID,x30 days,PRN:as needed for spasm Start Date: 09/15/15 Status: Ordered Cymbalta 30 mg oral delayed release capsule 30 mg 1 caps, Oral, BID, do not crush or chew, # 60 caps, 0 Refill(s) Start Date: 06/16/15 Status: Ordered gabapentin 300 mg oral capsule 1,200 mg 4 caps, Oral, TID, # 360 caps, 6 Refill(s), Pharmacy: [facility], 4 caps Oral TID,x30 days Start Date: 02/12/15 Stop Date: 09/10/15 Status: Ordered hydrochlorothiazide 25 mg oral tablet See Instructions, TAKE ONE TABLET BY MOUTH ONCE DAILY, # 90 tabs, eRx: [facility], TAKE ONE TABLET BY MOUTH ONCE DAILY Start Date: 08/25/15 Status: Ordered hydrOXYzine hydrochloride 25 mg oral tablet See Instructions, TAKE ONE TABLET BY MOUTH EVERY 6 HOURS NEEDED. TAKES WITH NORCO., # 90 tabs, eRx: [facility], TAKE ONE TABLET BY MOUTH EVERY 6 HOURS NEEDED. TAKES WITH NORCO. Start Date: 08/22/15 Status: Ordered magnesium citrate mL, Oral, Once, 0 Refill(s) Start Date: 06/16/15 Status: Ordered [place] 5 mg-325 mg oral tablet 1 tabs, Oral, TID, as needed for pain, # 90 tabs, 0 Refill(s) Start Date: 09/18/15 Status: Ordered Premarin 1.25 mg oral tablet See Instructions, TAKE ONE TABLET BY MOUTH 3x WEEKLY, # 84 tabs, 0 Refill(s), TAKE ONE TABLET BY MOUTH 3x WEEKLY Start Date: 07/28/15 Status: Ordered promethazine 25 mg oral tablet See Instructions, TAKE ONE TABLET BY MOUTH EVERY 6 HOURS NEEDED FOR NAUSEA, # 90 tabs, eRx: [facility], TAKE ONE TABLET BY MOUTH [...] Refill(s) Start Date: 09/17/14 Status: Ordered Results Hematology Most recent to 1 oldest [Reference Range]: WBC [5.0-10.0 8.1 10*3/uL 10*3/uL] (09/19/15 12:00 AM) RBC [3.70-5.20] 4.76 (09/19/15 12:00 AM) Hgb [12.0-16.0 12.0 gm/dL gm/dL] (09/19/15 12:00 AM) Hct [37.0-47.0 %] 38.1 % (09/19/15 12:00 AM) MCV [80.0-96.0 fL] 80.0 fL (09/19/15 12:00 AM) MCH [26.0-34.0 pg] 25.2 pg *LOW* (09/19/15 12:00 AM) MCHC [32.0-36.0 31.5 gm/dL gm/dL] *LOW* (09/19/15 12:00 AM) RDW [0.0-14.5 %] 17.3 % *HI* (09/19/15 12:00 AM) Platelet [150-400 369 10*3/uL 10*3/uL] (09/19/15 12:00 AM) MPV [8.8-14.8 fL] 9.6 fL (09/19/15 12:00 AM) Neutrophils [50-70 53 % %] (09/19/15 12:00 AM) Lymphocytes [20-40 34 % %] (09/19/15 12:00 AM) Monocytes [4-8 %] 8 % (09/19/15 12:00 AM) Eosinophils [0-6 %] 5 % (09/19/15 12:00 AM) Basophils [0-2 %] 1 % (09/19/15 12:00 AM) Neutro Absolute 4.25 10*3 [2.50-7.00 10*3] (09/19/15 12:00 AM) Lymph Absolute 2.77 10*3 [1.00-4.00 10*3] (09/19/15 12:00 AM) Mckenzie Absolute 0.66 10*3 [0.20-0.80 10*3] (09/19/15 12:00 AM) Eos Absolute 0.38 10*3 [0.00-0.60 10*3] (09/19/15 12:00 AM) Baso Absolute 0.04 [0.00-0.30] (09/19/15 12:00 AM) Immunizations Vaccine Date Refusal Reason tetanus/diphth/pertuss (Tdap) adult/adol 09/19/15 influenza virus vaccine, inactivated 09/19/15 influenza virus vaccine, inactivated1 09/17/14 pneumococcal 23-polyvalent vaccine 09/19/15 pneumococcal 23-polyvalent vaccine 10/12/01 tetanus-diphth toxoids (Td) adult/adol 04/01/04 zoster vaccine live 10/01/13 1Result Comment: [09/24/2014] see scanned doc Procedures Procedure Date Related Diagnosis Body Site Collection of venous blood by venipuncture 09/19/15 Adenoidectomy Appendectomy Cholecystectomy Dilation and curettage Gastric bypass Hysterectomy Laparoscopy NERVE RELEASE IN ABD1 Parotidectomy Sphincterotomy2 Tonsillectomy TUMOR REMOVED3 1see Conversion Documents 2see Conversion document 3See Conversion Document Social History Social History Type Response Smoking Status Former smoker; Type: Cigarettes; Number of years: 32; Stopped at age: 48 Assessment and Plan Extracted from: Title: Office Visit Note-Wheezing Author: Estelle Lobato PARQUETRY FLOOR LAYER Date: Assessment/Plan 1.Dyspnea Unknown etiology. Refer to pulmonology. Respiratory exam reveals no wheezing. Oxygen saturations are good after activity. Some of her dyspnea may be related to deconditioning. Unknown etiology of the pleural effusions they are minimal and have been ongoing for more than a year. Lab and x-ray results discussed with patient. Office visit the or ER if symptoms get worse. Ordered: albuterol, 2.5 mg, NEB, Once, First Dose: 09/19/15 10:00:00 CDT, Stop Date: 10:00:00 CDT, Form: Soln Admin set, with small volume nonfiltered pneumatic nebulizer, disposable [id number] Office Visit Level 4 Est 37607 pressurized/nonpressurized inhalation treatment 96349 2.Shortness of breath Ordered: Admin set, with small volume nonfiltered pneumatic nebulizer, disposable [id number] Office Visit Level 4 Est 51803 pressurized/nonpressurized inhalation treatment 35328 3.Anemia Resolved. Ordered: Office Visit Level 4 Est 37848 4.Pleural effusion Noted on CT scans over a year ago. Ordered: Office Visit Level 4 Est 97924 Fibromyalgia Refill of [place] provided. Discussed with patient she will need to find a different primary care provider towards the end of the year as Dr. Lubin is leaving. Encouraged her notprocrastinate on this issue as we will not be able to refill her narcotics when he is gone. Hypersomnia with sleep apnea Encourage her to clean her machine as instructed by the acquisitions assistant and sleep medicine. Counseled on Pneumovax,influenza andboostrix. Given by nursing. She is to return next week for fastinglipids. Chronic disease management visit next week with Dr. Esteban she no showed her last appointment.
--- OUTSIDE RECORDS SUMMARY | 2017-04-14 06:03 | XMS REPORT | Referral Summary ---
Author Author [facility] Organization [facility] Address Unknown Phone Unavailable Care Team Providers Care Pantry Attendant Name Role Phone Shanna John Primary Care Physician [phone] Encounter VC Date(s): 06/25/16 - 06/25/[address] [facility] [address] [facility] [address] [place], [place] [address] Discharge Diagnosis: Paresthesias Discharge Disposition: 01-Home or Self Care Attending Physician: Ace Layton MD Admitting Physician: Ace Layton MD Referring Physician: Ace Layton MD Vital Signs No data available for [...] Daily, # 90 tabs, 1 Refill(s), Pharmacy: [facility], 1 tabs Oral [...] BID, # 180 tabs, 1 Refill(s), Pharmacy: [facility], 1 tabs Oral BID Start Date: [...] DAILY, # 90 tabs, 2 Refill(s), eRx: [facility], TAKE ONE TABLET BY MOUTH ONCE DAILY Start Date: 01/30/16 Status: Ordered hydrOXYzine hydrochloride 25 mg oral tablet See Instructions, TAKE ONE TABLET BY MOUTH EVERY 6 HOURS NEEDED TAKE WITH NORCO., # 90 tabs, eRx: [facility], TAKE ONE TABLET BY MOUTH EVERY 6 HOURS NEEDED TAKE WITH NORCO. Start Date: 06/19/16 Status: Ordered lisinopril 10 mg oral tablet See Instructions, TAKE ONE TABLET BY MOUTH ONCE DAILY, # 90 tabs, eRx: [facility], TAKE ONE TABLET BY MOUTH ONCE DAILY Start Date: 06/19/16 Status: Ordered magnesium citrate See Instructions, 1 cap BID, 0 Refill(s) Start Date: 06/16/15 Status: Ordered metoclopramide 10 mg oral tablet 10 mg 1 tabs, Oral, TIDAC, X 30 days, # 90 tabs, 0 Refill(s), Pharmacy: [facility], 1 tabs Oral TIDAC,x30 days Start Date: 06/05/16 Stop Date: 07/05/16 Status: Ordered [place] 5 mg-325 mg oral tablet 2 tabs, Oral, TID, as needed for pain, / MUST LAST 30 DAYS/, # 150 tabs, 0 Refill(s) Start Date: 06/23/16 Status: Ordered ProAir RespiClick 90 mcg/inh inhalation powder 2 puffs, Inhalation, q4hr, Shortness of Breath/Wheezing, Pt. has coupon for free trial - given to pt while in office., # 1 Each, 1 Refill(s), Pharmacy: [facility]28 Start Date: 10/10/15 Status: [...] 48. Assessment and Plan Extracted from: Title: CANDELARIA [facility] MRI L-SPINE Author: Chelsea Rabago MA Date: 06/25/16 MRI L-Spine w/o contrast Sent to [facility] for open MRI Auth# [id number]
--- OUTSIDE RECORDS SUMMARY | 2017-04-14 06:04 | XMS REPORT | Referral Summary ---
Author Author [facility], [facility] Organization [facility] Address Unknown Phone Unavailable Care Team Providers Care Nursing Director Name Role Phone Shanna John Primary Care Physician [phone] Encounter VC Date(s): 07/26/16 - 07/26/16 [facility], [address] [place] [id number] Discharge Diagnosis: Chronic back pain greater than 3 months duration Discharge Diagnosis: Chronic pain syndrome Discharge Diagnosis: Fibromyalgia Discharge Disposition: 01-Home or Self Care Attending Physician: Marie John DO Admitting Physician: Marie John DO Vital Signs Most recent to 1 oldest [Reference Range]: Temperature Tympanic 36.9 degC [36.6-38.1 degC] (07/26/16 8:01 AM) Peripheral Pulse 98 bpm Rate [60-100 bpm] (07/26/16 8:01 AM) Respiratory Rate 17 br/min [14-20 br/min] (07/26/16 8:01 AM) Blood Pressure 124/80 mmHg [90-140/60-90 mmHg] (07/26/16 8:01 AM) SpO2 95 % (07/26/16 8:01 AM) Problem List Condition Effective Dates Status [...] # 60 tabs, 0 Refill(s) Start Date: 07/19/16 Status: Ordered Benadryl 25 mg, as needed for allergy symptoms, 0 Refill(s) Start Date: 06/16/15 Status: Ordered CeleXA 40 mg oral tablet 40 mg 1 tabs, Oral, Daily, # 90 tabs, 1 Refill(s), Pharmacy: [id number], 1 tabs Oral Daily [...] MOUTH TWICE DAILY, # 180 tabs, eRx: [id number], TAKE ONE TABLET BY [...] DAILY, # 90 tabs, 2 Refill(s), eRx: [id number], TAKE ONE TABLET BY MOUTH ONCE DAILY Start Date: 01/30/16 Status: Ordered hydrOXYzine hydrochloride 25 mg oral tablet See Instructions, TAKE ONE TABLET BY MOUTH EVERY 6 HOURS NEEDED TAKE WITH NORCO., # 90 tabs, eRx: [id number], TAKE ONE TABLET BY MOUTH EVERY 6 HOURS NEEDED TAKE WITH NORCO. Start Date: 06/19/16 Status: Ordered lisinopril 10 mg oral tablet See Instructions, TAKE ONE TABLET BY MOUTH ONCE DAILY, # 90 tabs, eRx: [id number], TAKE ONE TABLET BY MOUTH ONCE DAILY Start Date: 06/19/16 Status: Ordered magnesium citrate See Instructions, 1 cap BID, 0 Refill(s) Start Date: 06/16/15 Status: Ordered metoclopramide 10 mg oral tablet See Instructions, TAKE ONE TABLET BY MOUTH THREE TIMES DAILY BEFORE MEAL(S), # 90 tabs, 1 Refill(s), eRx: [facility], TAKE ONE TABLET BY MOUTH THREE TIMES DAILY BEFORE MEAL(S) Start Date: 07/05/16 Status: Ordered [place] 5 mg-325 mg oral tablet 2 tabs, Oral, TID, as needed for pain, MUST LAST 30 DAYS, # 120 tabs, 0 Refill(s) Start Date: 07/26/16 Status: Ordered ProAir RespiClick 90 mcg/inh inhalation powder 2 puffs, Inhalation, q4hr, Shortness of Breath/Wheezing, Pt. has coupon for free trial - given to pt while in office., # 1 Each, 1 Refill(s), Pharmacy: [place] [id number] Start Date: 10/10/15 Status: Ordered Savella 25 [...] Patient Education Author: Marie John DO Date: Family Medicine Myofascial Pain Syndrome and Fibromyalgia Myofascial pain syndrome and fibromyalgia are both pain disorders. This pain may be felt mainly in your muscles. Myofascial pain syndrome: Always has trigger points or tender points in the muscle that will cause pain when pressed. The pain may come and go. Usually affects your neck, upper back, and shoulder areas. The pain often radiates into your arms and hands. Fibromyalgia: Has muscle pains and tenderness that come and go. Is often associated with fatigue and sleep disturbances. Has trigger points. Tends to be long-lasting (chronic), but is not life-threatening. Fibromyalgia and myofascial pain are not the same. However, they often occur together. If you have both conditions, each can make the other worse. Both are common and can cause enough pain and fatigue to make day-to-day activities difficult. CAUSES The exact causes of fibromyalgia and myofascial pain are not known. People with certain gene types may be more likely to develop fibromyalgia. Some factors can be triggers for both conditions, such as: Spine disorders. Arthritis. Severe injury (trauma) and other physical stressors. Being under a lot of stress. A medical illness. SIGNS AND SYMPTOMS Fibromyalgia The main symptom of fibromyalgia is widespread pain and tenderness in your muscles. This can vary over time. Pain is sometimes described as stabbing, shooting, or burning. You may have tingling or numbness, too. You may also have sleep problems and fatigue. You may wake up feeling tired and groggy (fibro fog) . Other symptoms may include: Bowel and bladder problems. Headaches. Visual problems. Problems with odors and noises. Depression or mood changes. Painful menstrual periods (dysmenorrhea). Dry skin or eyes. Myofascial pain syndrome Symptoms of myofascial pain syndrome include: Tight, ropy bands of muscle. Uncomfortable sensations in muscular areas, such as: Aching. Cramping. Burning. Numbness. Tingling. Muscle weakness. Trouble moving certain muscles freely (range of motion). DIAGNOSIS There are no specific tests to diagnose fibromyalgia or myofascial pain syndrome. Both can be hard to diagnose because their symptoms are common in many other conditions. Your health care provider may suspect one or both of these conditions based on your symptoms and medical history. Your health care provider will also do a physical exam. The farris to diagnosing fibromyalgia is having pain, fatigue, and other symptoms for more than three months that cannot be explained by another condition. The farris to diagnosing myofascial pain syndrome is finding trigger points in muscles that are tender and cause pain elsewhere in your body (referred pain). TREATMENT Treating fibromyalgia and myofascial pain often requires a team of health care providers. This usually starts with your primary provider and a physical therapist. You may also find it helpful to work with alternative health care providers, such as massage therapists or acupuncturists. Treatment for fibromyalgia may include medicines. This may include nonsteroidal anti-inflammatory drugs (NSAIDs), along with other medicines. Treatment for myofascial pain may also include: NSAIDs. Cooling and stretching of muscles. Trigger point injections. Sound wave (ultrasound) treatments to stimulate muscles. HOME CARE INSTRUCTIONS Take medicines only as directed by your health care provider. Exercise as directed by your health care provider or physical therapist. Try to avoid stressful situations. Practice relaxation techniques to control your stress. You may want to try: Biofeedback. Visual imagery. Hypnosis. Muscle relaxation. Yoga. Meditation. Talk to your health care provider about alternative treatments, such as acupuncture or massage treatment. Maintain a healthy lifestyle. This includes eating a healthy diet and getting enough sleep. Consider joining a support group. Do not do activities that stress or strain your muscles. That includes repetitive motions and heavy lifting. SEEK MEDICAL CARE IF: You have new symptoms. Your symptoms get worse. You have side effects from your medicines. You have trouble sleeping. Your condition is causing depression or anxiety. FOR MORE INFORMATION National Fibromyalgia Association: www.fmaware.org Arthritis Foundation: www.arthritis.org [place] [employer]: www.theacpa.org/condition/myofascial- pain This information is not intended to replace advice given to you by your health care provider. Make sure you discuss any questions you have with your health care provider. Document Released: 11/14/2006 Document Revised: 12/05/2015 Document Reviewed: ExitCare Patient Information 2016 [employer]. No follow up information was provided. Extracted from: Title: Office Visit Note Author: Marie John DO Date: 07/26/16 Assessment/Plan Chronic back pain greater than 3 months duration Ordered: Office Visit Level 4 Est 61087 Chronic pain syndrome Ordered: Office Visit Level 4 Est 22998 Fibromyalgia Ordered: Office Visit Level 4 Est 47216 Orders: HYDROcodone-acetaminophen, 2 tabs, Oral, TID, as needed for pain, MUST LAST 30 DAYS, # 120 tabs, 0 Refill(s) We had a long discussion today about the trajectory of her pain management. We did discuss thatI agree with pain management that fibromyalgia is not an appropriate indication for narcotic pain medicines. If they is the specialist deemed that her low back pathologydoes not warrant narcoticsthat puts us in a difficult situation. I did discuss with patient that I am willing to see her monthly and that we will work on tapering her down off of her narcotics. I agreed that if we could get her toa place where she only used about 30 a month this would be something I would be comfortable with in a chronic fashion. We will continue to taper her off of her medications 5-10 pills at a time from this point onand she will not receive any narcotic prescriptions outside of office visits. Patient voiced understanding and is in agreement with this plan.
--- OUTSIDE RECORDS SUMMARY | 2017-04-14 06:04 | XMS REPORT | Continuity of Care Document ---
Author Author Kristin Sotelo MD Ambulatory Address [address] [place] [address] [place] [address] Phone Care Team Providers Care General Engineer Name Role Phone Kristin Sotelo PP Unavailable Payers Payer name Insurance type Covered constitution party ID Authorization(s) Unknown Problems Condition Effective Dates (start - stop) Clinical Status Fatigue / Malaise - *Chronic Unspecified pruritic disorder - *Chronic BARIATRIC SURGERY STATUS - *Chronic Hypertension, Benign - *Chronic Unspecified vitamin d deficiency - *Chronic History of gastric bypass - *Chronic Thrush - *Acute Abdominal pain, right upper quadrant - *Chronic Depression - *Chronic Diarrhea - *Chronic Hypertension, Benign - *Chronic CHRONIC PAIN NEC - *Chronic Chronic fatigue - *Chronic Need for unspecified prophylactic measure - *Chronic NEED FOR PROPHYLACTIC VACCINATION AND INOCULATION, OTHER VIRAL DISEASES - Hypocalcemia - *Chronic Diarrhea - *Chronic Iron deficiency anemia - *Chronic Vitamin d deficiency - *Chronic Abdominal pain, right upper quadrant - Episodic Diarrhea - Episodic Chronic pain - *Chronic Chronic fatigue - *Chronic Anemia - *Chronic Vitamin D deficiency - *Chronic Iron deficiency - *Chronic Chronic pruritus - *Chronic Hypertension, Benign - *Chronic Edema - *Chronic Hypocalcemia - *Poor control Unspecified vitamin d deficiency - *Poor control Anemia, Iron Deficiency - *Chronic Family History Family Member Diagnosis Age At Onset Status Mother (Unknown) Diabetes Yes Father (Unknown) Hypertension Yes Mother (Unknown) Hypertension Yes Social History Social History Element Description Quantity Unknown Allergies, Adverse Reactions, Alerts Substance Reaction Severity Status CLARITHROMYCIN Unknown CODEINE Unknown MORPHINE Unknown OXYCODONE HCL Unknown ACETAMINOPHEN Unknown ACETAMINOPHEN Unknown HYDROCODONE BITARTRATE Unknown HYDROMORPHONE HCL Unknown Medications Medication Instructions Dosage Effective Dates (start - stop) Status Neurontin 300 mg capsule take 3 Capsule (900MG) by oral route every day at bedtime 900 MG - Active Valium 5 mg tablet take 0.5 tablet (2.5MG) by oral route every day as needed for hip spasm - Active Cinnamon 500 mg capsule take 1 by Oral route - Active multivitamin capsule take 1 by Oral route every day 0 - Active [place] 5 mg-325 mg tablet Take 0.5 -2 tablets by mouth at HS PRN - 2013 No Longer Active promethazine 25 mg tablet take 0.5-1 tablet by oral route as needed with [place]. - No Longer Active Celexa 40 mg tablet take 1 tablet (40MG) by oral route every day 40 MG Jan - Active take 1 Tablet by Oral route every 6 hours as needed 0 - Active [place] 5 mg-325 mg tablet Take 0.5 -2 tablets by mouth at HS PRN 2013 - No Longer Active CRANBERRY (unknown strength) daily - Active Premarin 1.25 mg tablet Take 1 tablet by mouth every day. - Active IRON (unknown strength) - Active hydrochlorothiazide 25 mg tablet take 1 tablet (25MG) by oral route every day 25 MG - Active promethazine 25 mg tablet take 0.5-1 tablet by oral route as needed with [place]. - Active Neurontin 400 mg capsule take 1 capsule (400MG) by oral route PRN in the morning. - Active [place] 5 mg-325 mg tablet Take 0.5 -2 tablets by mouth at HS PRN 2013 - Active Immunizations Vaccine Date Status Comments Zoster completed Td (adult) completed - Completed reason: source unspecified pneumo (2 yrs or older) (PPV23) completed - Completed reason: source unspecified Results Test Name Date and Time Measure Units Reference Range Abnormal Flag Comments Panel Description: Vitamin D 18-Dyfuuso-MKB 25-Hydroxy D2 08:52:00 <7 ng/mL 25-Hydroxy D3 08:52:00 57 ng/mL 25-Hydroxy D Total 08:52:00 57 ng/mL 30-74 The desirable level of 25-Hydroxy Vitamin D Total(D2 + D3) is 30-74 ng/mL.A level consistently >200 is potentially toxic.Testing performed at [facility] Reference Lab [address] [facility] [address] Engineering Specialist Technician Brandon Salazar MD Vital Signs Date / Time: Height Weight Pulse Rate Blood Pressure Temperature /08:16:00 65.00 in 244.00 lbs 88 /min 124/76 mm[Hg] 96.9 F Procedures Procedure Date Unknown Encounters Encounter Location Date Patient Visit [facility] Patient Visit [facility] Patient Visit [facility] Patient Visit [facility] Patient Visit [facility] Patient Visit [facility] Patient Visit [facility] Patient Visit [facility] Patient Visit [facility] Silver Patient Visit [facility] Patient Visit [facility] Patient Visit [facility] Advance Directives Directive Effective Date Unknown
--- OUTSIDE RECORDS SUMMARY | 2017-04-14 06:04 | XMS REPORT | Referral Summary ---
Author Author [facility] Organization [facility] Address Unknown Phone Unavailable Care Team Providers Care Blade Operator Name Role Phone Shanna John Primary Care Physician [phone] Encounter VC Date(s): 11/02/16 - 11/02/[address] [facility] [address] [facility] [address] [place], [place] [address] Discharge Diagnosis: Spells Discharge Disposition: 01-Home or Self Care Attending [...] Daily, # 90 tabs, 1 Refill(s), Pharmacy: [place] [id number], 1 tabs Oral Daily Start Date: 02/19/16 [...] MOUTH TWICE DAILY, # 180 tabs, eRx: [facility], TAKE ONE TABLET [...] DAILY, # 90 tabs, 1 Refill(s), eRx: [facility], TAKE ONE TABLET BY MOUTH ONCE DAILY Start Date: 08/16/16 Status: Ordered hydrOXYzine hydrochloride 25 mg oral tablet See Instructions, TAKE ONE TABLET BY MOUTH EVERY 6 HOURS NEEDED TAKE WITH NORCO., # 90 tabs, eRx: [facility], TAKE ONE TABLET BY MOUTH EVERY 6 HOURS NEEDED TAKE WITH NORCO. Start Date: 10/29/16 Status: Ordered lisinopril 10 mg oral tablet See Instructions, TAKE ONE TABLET BY MOUTH ONCE DAILY, # 90 tabs, 3 Refill(s), Pharmacy: [place] [id number], TAKE ONE TABLET BY MOUTH ONCE DAILY Start Date: 10/19/16 Status: Ordered magnesium citrate See Instructions, 1 cap BID, 0 Refill(s) Start Date: 06/16/15 Status: Ordered metoclopramide 10 mg oral tablet See Instructions, TAKE ONE TABLET BY MOUTH THREE TIMES DAILY BEFORE MEAL(S), # 90 tabs, eRx: [facility], TAKE ONE TABLET BY MOUTH THREE TIMES DAILY BEFORE MEAL(S) Start Date: 09/03/16 Status: Ordered [place] 5 mg-325 mg oral tablet 2 tabs, [...] office., # 1 Each, 1 Refill(s), Pharmacy: [facility] Start Date: 10/10/15 Status: Ordered promethazine 25 mg oral tablet See Instructions, TAKE ONE TABLET BY MOUTH EVERY 6 HOURS NEEDED FOR NAUSEA, # 90 tabs, 1 Refill(s), Pharmacy: [facility], TAKE ONE TABLET BY [...]
--- OUTSIDE RECORDS SUMMARY | 2017-04-14 06:04 | XMS REPORT | Referral Summary ---
Author Author [facility] Organization [facility] Address Unknown Phone Unavailable Care Team Providers Care Spring Upholsterer Name Role Phone Delvin Lubin Primary Care Physician [phone] Encounter Date(s): 10/10/15 - 10/10/15 [facility] [address] [place], [place] [address] Discharge Diagnosis: Pleural thickening Discharge Diagnosis: Small airways disease Discharge Diagnosis: Abnormal PFT Discharge Disposition: 01-Home or Self Care Attending Physician: Brianne Arias MD Admitting Physician: Brianne Arias MD Referring Physician: Joel Lubin MD Vital Signs Most recent to 1 oldest [Reference Range]: Peripheral Pulse 96 bpm Rate [60-100 bpm] (10/10/15 10:55 AM) Respiratory Rate 20 br/min [14-20 br/min] (10/10/15 10:55 AM) Blood Pressure 132/82 mmHg [90-140/60-90 mmHg] (10/10/15 10:55 AM) SpO2 95 % (10/10/15 10:55 AM) Problem List Condition Effective Dates [...] him, # 90 tabs, 0 Refill(s), Pharmacy: [id number], 1 tabs Oral Daily,Instr:next [...] spasm, # 60 tabs, 2 Refill(s), eRx: [facility], 1 tabs Oral BID,x30 days,PRN:as needed for spasm Start Date: 09/15/15 Status: Ordered Cymbalta 30 mg oral delayed release capsule 30 mg 1 caps, Oral, BID, do not crush or chew, # 60 caps, 0 Refill(s) Start Date: 06/16/15 Status: Ordered gabapentin 300 mg oral capsule 1,200 mg 4 caps, Oral, TID, # 360 caps, 6 Refill(s), Pharmacy: [facility], 4 caps Oral TID,x30 days Start Date: 02/12/15 Stop Date: 09/10/15 Status: Ordered hydrochlorothiazide 25 mg oral tablet See Instructions, TAKE ONE TABLET BY MOUTH ONCE DAILY, # 90 tabs, eRx: [facility], TAKE ONE TABLET BY MOUTH ONCE DAILY Start Date: 08/25/15 Status: Ordered hydrOXYzine hydrochloride 25 mg oral tablet See Instructions, TAKE ONE TABLET BY MOUTH EVERY 6 HOURS NEEDED. TAKES WITH NORCO., # 90 tabs, eRx: [facility], TAKE ONE TABLET BY MOUTH EVERY 6 HOURS NEEDED. TAKES WITH NORCO. Start Date: 08/22/15 Status: Ordered magnesium citrate mL, Oral, Once, 0 Refill(s) Start Date: 06/16/15 Status: Ordered [place] 5 mg-325 mg oral tablet 1 tabs, [...] Daily, # 90 caps, 0 Refill(s), Pharmacy: [facility], 1 caps Oral Daily Start Date: 09/26/15 Status: Ordered ProAir RespiClick 90 mcg/inh inhalation powder 2 puffs, Inhalation, q4hr, Shortness of Breath/Wheezing, Pt. has coupon for free trial - given to pt while in office., # 1 Each, 1 Refill(s), Pharmacy: [place] [id number] Start Date: 10/10/15 Status: Ordered promethazine 25 mg oral tablet See Instructions, TAKE ONE TABLET BY MOUTH EVERY 6 HOURS NEEDED FOR NAUSEA, # 90 tabs, eRx: [facility], TAKE [...] Ambulatory Patient Education Author: Brianne Arias Date: 10/10/15 [facility] Pleurisy Pleurisy is an inflammation and swelling of the lining of the lungs (pleura). Because of this inflammation, it hurts to breathe. It can be aggravated by coughing, laughing, or deep breathing. Pleurisy is often caused by an underlying infection or disease. HOME CARE INSTRUCTIONS Monitor your pleurisy for any changes. The following actions may help to alleviate any discomfort you are experiencing: Medicine may help with pain. Only take [id number] or prescription medicines for pain, discomfort, or fever as directed by your health care provider. Only take antibiotic medicine as directed. Make sure to finish it even if you start to feel better. SEEK MEDICAL CARE IF: Your pain is not controlled with medicine or is increasing. You have an increase in pus-like (purulent) secretions brought up with coughing. SEEK IMMEDIATE MEDICAL CARE IF: You have blue or dark lips, fingernails, or toenails. You are coughing up blood. You have increased difficulty breathing. You have continuing pain unrelieved by medicine or pain lasting more than 1 week. You have pain that radiates into your neck, arms, or jaw. You develop increased shortness of breath or wheezing. You develop a fever, rash, vomiting, fainting, or other serious symptoms. MAKE SURE YOU: Understand these instructions. Will watch your condition. Will get help right away if you are not doing well or get worse. Document Released: 11/14/2006 Document Revised: 07/17/2014 Document Reviewed: ExitCare Patient Information 2015 [employer], [facility]. This information is not intended to replace advice given to you by your health care provider. Make sure you discuss any questions you have with your health care provider. No follow up information was provided.
--- OUTSIDE RECORDS SUMMARY | 2017-04-14 06:04 | XMS REPORT | Referral Summary ---
Author Author [facility], [facility] Organization [facility] Address Unknown Phone Unavailable Care Team Providers Care Golf Sales Manager Name Role Phone Shanna John Primary Care Physician [phone] Encounter Date(s): 09/19/15 - 09/19/15 [facility] [place] [address] Discharge Diagnosis: Shortness of breath Discharge [...] BID, as needed for anxiety, [facility], # [facility] tabs, 0 Refill(s) Start Date: 03/22/16 Status: Ordered Benadryl 25 mg, as needed for allergy symptoms, 0 Refill(s) Start Date: 06/16/15 Status: Ordered CeleXA 40 mg oral tablet 40 mg 1 tabs, Oral, Daily, # 90 tabs, 1 Refill(s), Pharmacy: [facility], 1 tabs Oral Daily Start [...] spasm, # 60 tabs, 2 Refill(s), Pharmacy: [facility], 1 tabs Oral [...] DAILY, # 90 tabs, 2 Refill(s), eRx: [facility], TAKE ONE TABLET BY MOUTH ONCE DAILY Start Date: 01/30/16 Status: Ordered hydrochlorothiazide 25 mg oral tablet See Instructions, TAKE ONE TABLET BY MOUTH ONCE DAILY, # 90 tabs, 0 Refill(s), Pharmacy: [place] [facility] [id number], TAKE ONE TABLET BY MOUTH ONCE DAILY Start Date: 11/13/15 Status: Ordered hydrOXYzine hydrochloride 25 mg oral tablet See Instructions, TAKE ONE TABLET BY MOUTH EVERY 6 HOURS NEEDED. TAKES WITH NORCO., # 90 tabs, 3 Refill(s), Pharmacy: [place] [facility] [id number], TAKE ONE TABLET BY MOUTH EVERY 6 HOURS NEEDED. TAKES WITH NORCO. Start Date: 11/25/15 Status: Ordered lisinopril 10 mg oral tablet 10 mg 1 tabs, Oral, Daily, # 90 tabs, 1 Refill(s), Pharmacy: [facility] [id number], 1 tabs Oral Daily Start Date: 03/10/16 Status: Ordered magnesium citrate See Instructions, 1 cap BID, 0 Refill(s) Start Date: 06/16/15 Status: Ordered Harmans 5 mg-325 mg oral tablet 1 tabs, [...] Daily, # 90 caps, 0 Refill(s), Pharmacy: [facility] [id number], 1 caps Oral Daily Start Date: 09/26/15 Status: Ordered ProAir RespiClick 90 mcg/inh inhalation powder 2 puffs, Inhalation, q4hr, Shortness of Breath/Wheezing, Pt. has coupon for free trial - given to pt while in office., # 1 Each, 1 Refill(s), Pharmacy: [place] [facility] [id number] Start Date: 10/10/15 Status: Ordered promethazine 25 mg oral tablet See Instructions, TAKE ONE TABLET BY MOUTH EVERY 6 HOURS NEEDED FOR NAUSEA, # 90 tabs, 2 Refill(s), eRx: [id number], TAKE ONE TABLET BY MOUTH EVERY 6 [...] 2.77 10*3 [1.00-4.00 10*3] (09/19/15 12:00 AM) [place] Absolute 0.66 10*3 [0.20-0.80 10*3] (09/19/15 12:00 [...] Title: Office Visit Note-Wheezing Author: Estelle Lobato ALTERNATIVE ENERGY TECHNICIAN Date: Assessment/Plan 1.Dyspnea Unknown etiology. Refer to [...] disposable [id number] Office Visit Level 4 Est 75861 pressurized/nonpressurized inhalation treatment 42817 2.Shortness of breath Ordered: Admin set, with small volume nonfiltered pneumatic nebulizer, disposable A7003 Office Visit Level 4 Est 06935 pressurized/nonpressurized inhalation treatment 97438 3.Anemia Resolved. Ordered: Office Visit Level 4 Est 79878 4.Pleural effusion Noted on CT scans over a year ago. Ordered: Office Visit Level 4 Est 26809 Fibromyalgia Refill of Harmans provided. Discussed with patient she will need to find a different primary care provider towards the end of the year as Dr. Lubin is leaving. Encouraged her notprocrastinate on this issue as we will not be able to refill her narcotics when he is gone. Hypersomnia with sleep apnea Encourage her to clean her machine as instructed by the polisher hand and sleep medicine. Counseled on Pneumovax,influenza andboostrix. Given by nursing. She is to return next week for fastinglipids. Chronic disease management visit next week with Dr. Esteban she no showed her last appointment.
--- OUTSIDE RECORDS SUMMARY | 2017-04-14 06:04 | XMS REPORT | Referral Summary ---
Author Author [facility], [facility] Organization [facility] Address Unknown Phone Unavailable Care Team Providers Care Card Placer Name Role Phone Delvin Lubin Primary Care Physician [phone] Encounter Date(s): 09/26/15 - 09/26/15 [facility] [place] [address]- Discharge Diagnosis: Wheezing Discharge Diagnosis: GERD without [...] him, # 90 tabs, 0 Refill(s), Pharmacy: [facility], 1 tabs Oral Daily,Instr:next refill request send to Dr. Lubin, patient is changing to him Start Date: 04/22/15 Status: Ordered cranberry 440 mg, Oral, Daily, 0 Refill(s) Start Date: 06/26/14 Status: Ordered cyclobenzaprine 10 mg oral tablet See Instructions, 1 tabs Oral BID,x30 days,PRN:as needed for spasm, # 60 tabs, 2 Refill(s), eRx: [facility], 1 tabs Oral BID,x30 days,PRN:as needed for spasm Start Date: 09/15/15 Status: Ordered Cymbalta 30 mg oral delayed release capsule 30 mg 1 caps, Oral, BID, do not crush or chew, # 60 caps, 0 Refill(s) Start Date: 06/16/15 Status: Ordered gabapentin 300 mg oral capsule 1,200 mg 4 caps, Oral, TID, # 360 caps, 6 Refill(s), Pharmacy: [facility], 4 caps Oral TID,x30 days Start Date: 02/12/15 Stop Date: 09/10/15 Status: Ordered hydrochlorothiazide 25 mg oral tablet See Instructions, TAKE ONE TABLET BY MOUTH ONCE DAILY, # 90 tabs, eRx: [facility], TAKE ONE TABLET BY MOUTH ONCE DAILY Start Date: 08/25/15 Status: Ordered hydrOXYzine hydrochloride 25 mg oral tablet See Instructions, TAKE ONE TABLET BY MOUTH EVERY 6 HOURS NEEDED. TAKES WITH NORCO., # 90 tabs, eRx: [facility], TAKE ONE TABLET BY MOUTH EVERY 6 HOURS NEEDED. TAKES WITH NORCO. Start Date: 08/22/15 Status: Ordered magnesium citrate mL, Oral, Once, 0 Refill(s) Start Date: 06/16/15 Status: Ordered Pelham 5 mg-325 mg oral tablet 1 tabs, [...] Daily, # 90 caps, 0 Refill(s), Pharmacy: [facility], 1 caps Oral Daily Start Date: 09/26/15 Status: Ordered promethazine 25 mg oral tablet See Instructions, TAKE ONE TABLET BY MOUTH EVERY 6 HOURS NEEDED FOR NAUSEA, # 90 tabs, eRx: [facility], TAKE ONE TABLET [...] Title: Office Visit Note-GERD Author: Estelle Lobato DEPILATORY PAINTER Date: Assessment/Plan 1.GERD without esophagitis Discussed with patient considering her symptoms I think it's reasonable to treat her for acid refluxthough clearly her anatomy is different since having the bypass. May need to reestablish care with gastric bypass surgeonif continued acid symptoms despite PPI therapy. Ordered: Office Visit Level 4 Est 14367 2.Wheezing As patient's discusses her symptoms more question if it's related tolaryngeal irritation from reflux. Let's see if it improves with the PPI. May need to refer to ENT for further evaluation. Her now keep pulmonology appointment. Ordered: Office Visit Level 4 Est 74055 3.History of gastric bypass Ordered: Office Visit Level 4 Est 37307 Diabetes Last labs reviewed with patient. Encourage healthy eating. Morbid obesity Ordered: Office Visit Level 4 Est 60246 Orders: omeprazole, 40 mg 1 caps, Oral, Daily, # 90 caps, 0 Refill(s), Pharmacy: [facility], 1 caps Oral Daily
--- NOTE | 2017-04-14 06:10 | NUR ---
REPORT REPORT GIVEN TO MJ EATON
[2017-04-14] MEDS ORDERED: BUPR1PAT2 TOP (06:39)
[2017-04-14] MEDS ORDERED: HYDR-347 PO (06:39)
--- NOTE | 2017-04-14 06:57 | ERPDOC ---
Departure Disposition Decision Date: April 14, 2017 Disposition Decision Time: 09:55 Disposition: 01 DISCHARGED HOME, SELF-CARE Impression Impression Impression: Primary Impression: Tremor Additional Impression: Pseudoseizure Severity: Moderate Condition: Improved Seen By: Physician only Referrals: JAMAL QUINTANILLA DO (Family) Patient Instructions: Nonepileptic Seizures (ED) Problems/Meds/Labs Reviewed?: Yes Medications reviewed and manag: Yes Follow up care ordered?: Yes Scripts Propranolol HCl (Propranolol HCl) 20 Mg Tablet 20 MG PO BID for 30 Days, #60 TAB Take 1 tablet, by mouth, 2 times a day. Prov: YUE BENTLEY MD 04/14/17 HPI - General Medical General Chief Complaint: Seizure Stated Complaint: SEIZURES Time Seen by Provider: 06:54 HPI - General Medical Initial Comments 42-year-old female presents with spastic motions. She can sit comfortably, if somebody bumps or she has a bump in the road, she has been setting off into a whole body flail. She is conscious, aware of what is going on, but cannot stop it. She has had this before but much more minor. Affect is been going on since at least November but in the last 2 days it escalated in frequency and severity. No fevers chills, no headache. Patient has had a good appetite. She did have an MRI in November which was normal, has not had any follow-up imaging since that time. Allergies: Coded Allergies: clarithromycin (Verified Allergy, Unknown, N/V,FOUL TASTE IN MOUTH, ) morphine (Verified Allergy, Unknown, N/V,ITCHING,RASH, 04/14/17) codeine (Verified Adverse Reaction, Unknown, N/V,ITCHING, 04/14/17) hydrocodone bit (Verified Adverse Reaction, Unknown, N/V,ITCHING, 04/14/17) PT STATES TAKES LORTAB WITH PHERGAN AND ATARAX hydromorphone HCl (Verified Adverse Reaction, Unknown, N/V,ITCHING, ) oxycodone HCl (Verified Adverse Reaction, Unknown, N/V,ITCHING, 04/14/17) tramadol (Unverified Adverse Reaction, Unknown, ITCHING, 04/14/17) Past History Vaccines Hx Influenza Vaccination: Yes () Hx Pneumococcal Vaccination: Yes () Social History Does patient use chewing tobac: No Review of Systems Musculoskeletal General: see HPI Neurological General: see HPI All other Systems All Other Systems: Reviewed and Negative Physical Exam General General Nourishment: well nourished, appears stated age, adult, obese Distress Description Overall exhaustion, patient is lying in bed with a padded wrap over her eyes. Vitals and Pain First Documented Vital Signs Date Time Temp Pulse Resp B/P Pulse Ox O2 Delivery O2 Flow Rate FiO2 04/14/17 05:57 97.6 101 18 128/66 97 Room Air Weight: Kilograms: 107.600 Height (feet): 5 Height (inches): 5.00 Triage Pain Scale: Normal Exams: Head: Normocephalic w/o trauma Eyes: Pupils are PERRLA w/ EOMI, No scleral icterus, irritation, or foreign bodies noted Chest/Resp: Clear all corrigan, with good airflow, and symmetry bilaterally CV: Regular rate and rhythm, without murmur or gallop, Pulses 2+ all extremities, capillary refill, <2 seconds all ext., no pedal edema noted Abdomen: Bowel sounds positive, soft, non-tender, non-distended, no hepatosplenomegaly, masses or bruits noted Neurologic: Patient is alert, and oriented, cranial nerves, motor/sensory/ cerebellar, exams w/o gross deficits, to observation Psychiatric: Patient exhibits, appropriate attention, emotion and affect Neurologic (brief) Comments Spastic flailing with onset of seizure, at least in the last about 30 seconds. Shaniqua responsive with DTRs. Differential Diagnoses Considering: Medication Effect, Metabolic, Poisoning/Accidental OD, Pulmonary Embolus, Other Progress Results/Orders Orders Procedure Category Date Status Time Cefepime (Maxipime) PHA 04/14/17 Complete 07:00 Levofloxacin 750 Mg PHA 04/14/17 Complete Ivpb (Levaquin 750 M 07:00 Vancomycin (Vancocin) PHA 04/14/17 Complete 07:00 Iv Lock (Ed Only) EDM 04/14/17 Transmitted 07:27 Oxygen Administration EDM 04/14/17 Transmitted 07:27 Cbc W/Auto LAB 04/14/17 Complete Diff-Reflex Manual 07:27 Cmp - Comprehensive LAB 04/14/17 Complete Metabolic 07:27 Ua, Dip Wreflex LAB 04/14/17 Logged [employer]ic 07:27 Drug Screen LAB 04/14/17 Complete [place] [facility] [place] 07:27 Ethanol LAB 04/14/17 Complete 07:27 Salicylate LAB 04/14/17 Complete 07:27 Acetaminophen LAB 04/14/17 Complete 07:27 Prolactin LAB 04/14/17 Complete 07:27 Lorazepam (Ativan) PHA 04/14/17 In Process 07:30 Ct Head W/O Contrast CT 04/14/17 Resulted 07:27 Lab Results Laboratory Tests Test 04/14/17 08:19 White Blood Count 8.8T/MM3 Red Blood Count 4.38M/MM3 Hemoglobin 11.9GM/DL Hematocrit 36.9% Mean Corpuscular Volume 84.2UM3 Mean Corpuscular Hemoglobin 27.2UUG Mean Corpuscular Hemoglobin Concent 32.2GM/DL RDW Standard Deviation 43.2FL Platelet Count 344T/MM3 Mean Platelet Volume 10.7UM3 Immature Granulocyte % (Auto) 0.3% Neutrophils (%) (Auto) 45.3% Lymphocytes (%) (Auto) 42.1% Monocytes (%) (Auto) 7.2% Eosinophils (%) (Auto) 4.6% Basophils (%) (Auto) 0.5% Absolute Immature Granulocyte (auto 0.03T/MM3 Absolute Neutrophils (auto) 4.0T/MM3 Absolute Lymphocytes (auto) 3.7T/MM3 Absolute Monocytes (auto) 0.6T/MM3 Absolute Eosinophils (auto) 0.4T/MM3 Absolute Basophils (auto) 0.0T/MM3 Turbidity < 20 Sodium Level 144MEQ/L Potassium Level 4.0MEQ/L Chloride Level 104MEQ/L Carbon Dioxide Level 29MEQ/L Anion Gap 11MEQ/L Blood Urea Nitrogen 19.0MG/DL Creatinine 0.7MG/DL Glomerular Filtration Rate Calc 86 BUN/Creatinine Ratio 27RATIO Glucose Level 81MG/DL Calculated Osmolality 278MOSM/KG Calcium Level 9.3MG/DL Total Bilirubin 0.40MG/DL Icterus Index < 2 Aspartate Amino Transf (AST/SGOT) 32U/L Alanine Aminotransferase (ALT/SGPT) 45U/L Alkaline Phosphatase 135U/L Total Protein 6.5G/DL Albumin 4.2G/DL Globulin 2.3G/DL Albumin/Globulin Ratio 1.8RATIO Prolactin 4.5NG/ML Chemistry Specimen Hemolysis < 15 Salicylates Level < 1.0MG/DL Urine Opiates Screen PositiveNG/ML Urine Oxycodone Screen NegativeNG/ML Urine Methadone Screen NegativeNG/ML Urine Propoxyphene Screen NegativeNG/ML Acetaminophen Level < 10UG/ML Urine Barbiturates Screen NegativeNG/ML Urine Tricyclic Antidepressants NegativeNG/ML Urine Phencyclidine Screen NegativeNG/ML Urine Amphetamines Screen NegativeNG/ML Urine Methamphetamines Screen NegativeNG/ML Urine Benzodiazepines Screen PositiveNG/ML Urine Cocaine Screen NegativeNG/ML Urine Cannabinoids Screen NegativeNG/ML Urine Drug Screen Confirmation Sent out Urine Drug Screen Information Pending Alcohol, Quantitative <10MG/DL Medications Current ED Medications Cefepime HCl 1 g/ Sodium Chloride 100 ml @ 200 mls/hr Q6H IV ; Start 04/14/17 at 07:00; Stop 04/14/17 at 07:06; Status DC Levofloxacin 750 mg/Dextrose/Water 150 ml @ 100 mls/hr Q24H IV ; Start at 07:00; Stop 04/14/17 at 07:06; Status DC Vancomycin HCl/ Sodium Chloride (Vancocin/NS) 500 ml @ 250 mls/hr O ONCE IV ; Start 04/14/17 at 07:00; Stop 04/14/17 at 07:27; Status DC Lorazepam (Ativan) 1 mg O PRN IV AGITATION; Start 04/14/17 at 07:30 Progress Progress Labs returned appropriate, CT head shows no obvious cause. Discussed again options of workup and treatment. She is going to go see her neurologist in a week and half and will see her primary care provider next week. I wonder about trying propanolol as we use it for essential tremor and some anxiety syndromes. I explained this to her and told her it may or may not work. He should have no direct interaction with any of her medications and is at least worth trying. YUE BENTELY MD April 14, 2017 06:57
[2017-04-14] MEDS ORDERED: CEFEPIME 1 G in NORMAL SALINE 100 ML IV SCH (07:00)
[2017-04-14] MEDS ORDERED: VANCOMYCIN 2 G in NORMAL SALINE 500 ML IV ONE (07:00)
[2017-04-14] MEDS ORDERED: LEVOFLOXACIN 750 mg IVPB 750 MG in D5W 150 ML IV SCH (07:00)
--- OUTSIDE RECORDS SUMMARY | 2017-04-14 07:28 | XMS REPORT | Continuity of Care Document ---
Author Author [facility] Organization [facility] Address Unknown Phone Unavailable Care Team Providers Care Insole And Heel Stiffener Name Role Phone Primary Care Physician Unavailable Source Comments Some departments are not documenting in the electronic medical record. If you do not see the information that you expected, contact Release of Information in the Health Information Management department at [phone] for further assistance in locating additional records.[facility] Active Allergies and Adverse Reactions Allergen [...]
[2017-04-14] MEDS ORDERED: LORAZEPAM 2 MG/ML INJECTION IV PRN (07:30)
--- OUTSIDE RECORDS SUMMARY | 2017-04-14 07:30 | XMS REPORT | Continuity of Care Document ---
Author Author [facility] Organization [facility] Address Unknown Phone Unavailable Allergies Active Description Code Type Severity Reaction Onset Reported/Identified Relationship to Patient Clinical Status Yes SEE NOTES N/A N/A Yes BIAXIN 22545 3 vomit 12/24/2008 Yes CODEINE 51760 2 vomits 12/24/2008 Yes MORPHINE 97349 2 itching 12/24/2008 Yes ULTRAM 79587 2 Skin Rashes/Hives 11/01/2016 Medications Medication Packaging Start Date Stop Date Route Dosage Sig MIDAZOLAM 2MG/2ML INJ VL 09/17/2016 09/17/2017 IV ASDIR methylPREDNISolone ACETATE 80MG/1ML INJ VL 09/17/20162016 IT ASDIR methylPREDNISolone ACETATE 40MG/1ML INJ VL 09/17/20162016 IT ASDIR fentaNYL 100 MCG/2ML INJ AMP 09/17/2016 09/17/2017 IV ASDIR LIDOCAINE 1% MPF INJ (5ML) VL 09/17/2016 09/17/2017 ID ASDIR LIDOCAINE 1% MPF INJ (30ML) VL 09/17/2016 09/17/2017 IVP PRN BETAMETHASONE NA-PHOS/ACET 30MG/5ML INJ VL 09/17/20162016 IM ASDIR TRIAMCINOLONE 40MG/1ML INJ VL 09/17/2016 09/17/2017 IT ASDIR SODIUM CHLORIDE PF 0.9% 10ML INJ VL 09/17/2016 09/17/2017 IV ASDIR DEXAMETHASONE 10MG/1ML VIAL VL 09/17/2016 09/17/2017 IT ASDIR LIDOCAINE 2% MPF INJ [200MG/10ML] AMP 09/17/2016 09/17/2017 IT ASDIR DEXAMETHASONE 4MG/1ML VIAL SDV 09/17/2016 09/17/2017 IT ASDIR BUPIVACAINE 0.5% INJ [10 ML] VL 09/17/2016 09/17/2017 ID ASDIR BUPIVACAINE 0.25% INJ [10 ML] VL 09/17/2016 09/17/2017 IT ASDIR MIDAZOLAM 2MG/2ML INJ VL 09/24/2016 09/24/2017 IV PRN fentaNYL 100 MCG/2ML INJ AMP 09/24/2016 09/24/2017 IV PRN methylPREDNISolone ACETATE 80MG/1ML INJ VL 09/24/20162016 EPD PRN methylPREDNISolone ACETATE 80MG/1ML INJ VL 11/01/20162016 EPD ASDIR methylPREDNISolone ACETATE 80MG/1ML INJ VL 11/08/20162016 EPD ASDIR Problems Date Dx Coded Attending Type Code Diagnosis Diagnosed By 09/17/2016 TAMMY DE LA PAZ DF M54.16 Radiculopathy, lumbar region 09/24/2016 TAMMY DE LA PAZ DF M50.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 Visit Date/Time Discharge Status Pt. Type Provider Facility Loc./Unit Complaint [id number] 02/07/2014 07:56:00 02/07/2014 23 :59:59 CLS Outpatient
[2017-04-14 08:32] LABS: BASOPHILS % (AUTO) 0.5 % (0-2); EOSINOPHILS # (AUTO) 0.4 T/MM3 (0-0.5); EOSINOPHILS % (AUTO) 4.6 % (0-4); HCT - HEMATOCRIT 36.9 % (36-46); HGB - HEMOGLOBIN 11.9 GM/DL (12-16); IMMATURE GRANULOCYTE # (AUTO) 0.03 T/MM3 (0.00-0.03); IMMATURE GRANULOCYTE % (AUTO) 0.3 % (0.0-0.5); LYMPHOCYTES # (AUTO) 3.7 T/MM3 (1-4.8); LYMPHOCYTES % (AUTO) 42.1 % (23-45); MEAN CORPUSCULAR HGB 27.2 UUG (26-34); MEAN CORPUSCULAR HGB CONC(MCHC 32.2 GM/DL (31-37); MEAN CORPUSCULAR VOLUME 84.2 UM3 (80-100); MEAN PLATELET VOLUME 10.7 UM3 (9.4-12.4); MONOCYTES # (AUTO) 0.6 T/MM3 (0-0.8); MONOCYTES % (AUTO) 7.2 % (0-9.0); NEUTROPHILS % (AUTO) 45.3 % (33-66); RED BLOOD COUNT 4.38 M/MM3 (4.00-5.20); WBC - WHITE BLOOD COUNT 8.8 T/MM3 (4.5-11.0)
--- NOTE | 2017-04-14 08:35 | DI ---
Indication: ITS.REASON: seizure like episode PROCEDURE: CT HEAD W/O CONTRAST: Encounter: Initial Comparison: None Technique: Axial CT images through the head were performed without contrast. Iterative Reconstruction dose reducing technique was utilized. FINDINGS: The ventricles are of normal size, shape, and contour for the patient's age. There are scattered areas of low attenuation in the white matter which most likely represent changes from chronic microvascular ischemia. The brainstem, cerebellum, and cerebral hemispheres otherwise have a normal morphology and CT attenuation. There is no evidence of midline displacement. No hemorrhage, signs of acute territorial stroke, mass effect, mass lesions, or edema is evident. The visualized portions of the skull base, midface, and calvarium demonstrate no abnormality. Mild sphenoid sinus disease. The tympanic and mastoid cavities appear normal. IMPRESSION: No acute intracranial abnormality or hemorrhage. .
--- NOTE | 2017-04-14 08:37 | NUR ---
Activity Summary: 0715: Patient voided on bedside commode. 0718: Patient had witnessed muscle spasm episode lasting less then 90 sec. 0730: Physician at bedside 0800: Patient voided on bedside commode 0815: Lab drawn and UDS collected 0820: To CT 0830: Patient back from CT, no futher muscles episodes, awaiting for results. Husbands at bedside.
[2017-04-14 08:43] LABS: ALBUMIN 4.2 G/DL (3.5-5.0); ALBUMIN/GLOBULIN RATIO 1.8 RATIO (1.1-2.2); ALKALINE PHOSPHATASE 135 U/L (38-126); ALT (SGPT) 45 U/L (9-52); ANION GAP 11 MEQ/L (5-15); AST (SGOT) 32 U/L (14-36); BUN/CREATININE RATIO 27 RATIO (6-26); CALCIUM 9.3 MG/DL (8.4-10.2); CHLORIDE 104 MEQ/L (98-107); CO2 - CARBON DIOXIDE 29 MEQ/L (22-30); CREATININE 0.7 MG/DL (0.7-1.2); GLOMERULAR FILTRATION RATE 86; GLUCOSE 81 MG/DL (65-110); SALICYLATE < 1.0 MG/DL (2-20); SODIUM 144 MEQ/L (134-144); TOTAL PROTEIN 6.5 G/DL (6.3-8.2)
[2017-04-14 08:44] LABS: ACETAMINOPHEN < 10 UG/ML (10-30); ETHANOL <10 MG/DL (<10)
[2017-04-14 08:52] LABS: AMPHETAMINE SCREEN,URINE NEGATIVE; BARBITURATE SCREEN,URINE NEGATIVE; BENZODIAZEPINES SCREEN,URINE POSITIVE; COCAINE SCREEN,URINE NEGATIVE; METHADONE SCREEN, URINE NEGATIVE; METHAMPHETAMINE SCREEN, URINE NEGATIVE; OPIATE SCREEN,URINE POSITIVE
[2017-04-14 08:53] LABS: CANNABINOID SCREEN,URINE NEGATIVE; PHENCYCLIDINE SCREEN,URINE NEGATIVE; TRICYCLIC ANTIDEPRESSANT,URINE NEGATIVE
--- NOTE | 2017-04-14 09:26 | NUR ---
Patient update: 09: Patient up to bedside commode, stated has had a few jerky movements but not the same as before. Waiting on lab test.
[2017-04-14 09:29] LABS: PROLACTIN 4.5 NG/ML
[2017-04-14] MEDS ORDERED: PROP20TA7 PO (09:56)
[2017-04-14 10:00] VITALS: BP 182/87; PULSE 86; RESP 18; O2SAT 98
--- NOTE | 2017-04-14 10:28 | NUR ---
Patient update: 944 Patient ambulated to restroom without diffuculty.
== END 2017-04-14 10:05 | disposition home or self-care (01) ==
LOC: ED 05:55
DX: R56.9 Unspecified convulsions (principal); R25.1 Tremor, unspecified
CPT/HCPCS: 36415; 80053; 80306; 80307; 84146; 85025